=== PATIENT | male | born 1940 | race Caucasian/White ===

== ENCOUNTER 2017-01-23 07:19 | Day surgery (SDC) | payer MEDICARE ==
[~2017-01-23 07:19] MED LIST: Acetaminophen TAB* 325 MG PO PRN; Buffered Lidocaine 1% SYR 3ML* 3 ML/SYR SYRINGE INTRADERM ONE
[2017-01-23] MEDS ORDERED: Midazolam* 1 MG/ML 2 ML VIAL (2 MG) ONE (09:15)
[2017-01-23] MEDS ORDERED: Proparacaine 0.5% OPHTH.SOL* 15 ML BTL ONE (09:22)
[2017-01-23] MEDS ORDERED: Phenylephrine 2.5% OPTH.SOL* 2 ML BTL ONE (09:22)
[2017-01-23] MEDS ORDERED: Povidone Iodine 5% OPTH* 30 ML BTL ONE (09:22)
[2017-01-23] MEDS ORDERED: Lidocaine 1% MPF* 2 ML VIAL ONE (09:22)
[2017-01-23] MEDS ORDERED: Cyclopentolate 1% OPTH.SOL* 2 ML BTL ONE (09:22)
[2017-01-23] MEDS ORDERED: Flurbiprofen 0.03% OPTH.SOL* 2.5 ML BTL ONE (09:22)
[2017-01-23] MEDS ORDERED: Lidocaine 2% EPI 1:200000 MPF* 20 ML VIAL ONE (09:22)
[2017-01-23] MEDS ORDERED: acetaZOLAMIDE TAB* 250 MG ONE (09:22)
[2017-01-23] MEDS ORDERED: Neomycin/Polymy/Dex OPTH.SUSP* MAXITROL 0.1% 5 ML ONE (09:22)
[2017-01-23] MEDS ORDERED: fentaNYL* 50 MCG/ML 2 ML VIAL (100 MCG VIAL) ONE (09:47)
[2017-01-23 10:34] VITALS: BP 125/70
--- NOTE | 2017-01-24 02:41 | OP ---
DATE OF OPERATION: 01/23/17 - [facility] DATE OF : 44 SURGEON: Ulises Sellers MD PREOPERATIVE DIAGNOSIS: Cataract, left eye. POSTOPERATIVE DIAGNOSIS: Cataract, left eye. OPERATIVE PROCEDURE: Phacoemulsification, left eye with IOL. DESCRIPTION OF PROCEDURE: The patient was brought to the operating room after being given 1/2% Alcaine with epinephrine drops in the preoperative area. The eye was prepped and draped in the usual sterile fashion. Sterile drape and eyelid speculum were placed. Again, topical 1/2% Alcaine with epinephrine was given. A paracentesis incision was made at the 3 o'clock position with the No.75 blade. Clear cornea incision 2.2 x 2.2-mm was created at the 6 o'clock position starting at the anterior limbus using the 2.2-mm keratome. The anterior chamber was irrigated with 0.4 mL of 1% non-preservative intracameral lidocaine and filled with DisCoVisc. A capsulorrhexis was completed using the cystotome and the Utrata forceps. Hydrodissection was performed with balanced salt solution. The lens nucleus was removed with the Phacoemulsification handpiece without incident. Cortex was removed with the irrigation-aspiration handpiece. The capsular bag was re-inflated using DisCoVisc and an SN6AT3 21.5 implant was inserted with the shooter and oriented to the 97 degree meridian. Horizontal reference avery were made with the patient in a seated position in the preoperative area. The pupil was very small, so a Malyugin ring was used to dilate the pupil prior to capsulorrhexis and removed after insertion of the lens. The irrigation-aspiration handpiece was used to remove all residual DisCoVisc. The eye was refilled with balanced salt solution and the wound checked and found to be watertight. Topical Maxitrol drops were given. [facility] iris abnormalities requiring pupil dilation device [id number]/[facility] #: [id number]
== END 2017-01-23 10:27 | disposition home or self-care (01) ==
LOC: OREAST 07:19
PROVIDERS: ATTEND Specialist
DX: H25.812 Combined forms of age-related cataract, left eye (principal); H35.3131 Nonexudative age-related macular degeneration, bilateral, early dry stage; I10 Essential (primary) hypertension; J45.909 Unspecified asthma, uncomplicated
CPT/HCPCS: A9270-GY; J2250; J3010; V2787

== ENCOUNTER 2017-01-30 06:36 | Day surgery (SDC) | payer MEDICARE ==
[2017-01-30] MEDS ORDERED: Proparacaine 0.5% OPHTH.SOL* 15 ML BTL ONE (07:14)
[2017-01-30] MEDS ORDERED: Lidocaine 2% EPI 1:200000 MPF* 20 ML VIAL ONE (07:14)
[2017-01-30] MEDS ORDERED: acetaZOLAMIDE TAB* 250 MG ONE (07:14)
[2017-01-30] MEDS ORDERED: Flurbiprofen 0.03% OPTH.SOL* 2.5 ML BTL ONE (07:14)
[2017-01-30] MEDS ORDERED: Lidocaine 1% MPF* 2 ML VIAL ONE (07:14)
[2017-01-30] MEDS ORDERED: Neomycin/Polymy/Dex OPTH.SUSP* MAXITROL 0.1% 5 ML ONE (07:14)
[2017-01-30] MEDS ORDERED: Povidone Iodine 5% OPTH* 30 ML BTL ONE (07:14)
[2017-01-30] MEDS ORDERED: Cyclopentolate 1% OPTH.SOL* 2 ML BTL ONE (07:14)
[2017-01-30] MEDS ORDERED: Phenylephrine 2.5% OPTH.SOL* 2 ML BTL ONE (07:14)
[2017-01-30] MEDS ORDERED: Midazolam* 1 MG/ML 2 ML VIAL (2 MG) ONE (08:05)
[2017-01-30 08:53] VITALS: BP 125/58
--- NOTE | 2017-01-31 00:46 | OP ---
DATE OF OPERATION: 01/30/17 [facility] DATE OF : 44 SURGEON: Ulises Sellers M.D. PREOPERATIVE DIAGNOSIS: Cataract, right eye. POSTOPERATIVE DIAGNOSIS: Cataract, right eye. OPERATIVE PROCEDURE: Phacoemulsification, right eye with IOL. DESCRIPTION OF PROCEDURE: The patient was brought to the operating room after being given 1/2% Alcaine with epinephrine drops in the preoperative area. The eye was prepped and draped in the usual sterile fashion. Sterile drape and eyelid speculum were placed. Again, topical 1/2% Alcaine with epinephrine was given. A paracentesis incision was made at the 9 o'clock position with the No.75 blade. Clear cornea incision 2.2 x 2.2-mm was created at the 12 o'clock position starting at the anterior limbus using the 2.2-mm keratome. The anterior chamber was irrigated with 0.4 mL of 1% non-preservative intracameral lidocaine and filled with DisCoVisc. A capsulorrhexis was completed using the cystotome and the Utrata forceps. Hydrodissection was performed with balanced salt solution. The lens nucleus was removed with the Phacoemulsification handpiece without incident. Cortex was removed with the irrigation-aspiration handpiece. The capsular bag was re-inflated using DisCoVisc and an SN6AT4 20 implant was inserted with the shooter, oriented to the 61-degree [place]. Horizontal reference avery were made with the marking pen with the patient in a seated position in the preoperative area. The irrigation- aspiration handpiece was used to remove all residual DisCoVisc. The eye was refilled with balanced salt solution and the wound checked and found to be watertight. Topical Maxitrol drops were given. [id number]/[facility] #: [id number] [facility]
== END 2017-01-30 09:01 | disposition home or self-care (01) ==
LOC: OREAST 06:36
PROVIDERS: ATTEND Specialist
DX: H25.811 Combined forms of age-related cataract, right eye (principal); H35.3131 Nonexudative age-related macular degeneration, bilateral, early dry stage; I10 Essential (primary) hypertension; E78.5 Hyperlipidemia, unspecified; J45.909 Unspecified asthma, uncomplicated
CPT/HCPCS: A9270-GY; J2250; V2787

== ENCOUNTER 2022-11-13 23:04 | Inpatient (IN) ==
[2022-11-13] MEDS ORDERED: NS 0.9% 1000 ml BAG 1,000 ML IV ONE (23:34)
[2022-11-13] MEDS ORDERED: Ondansetron 4 mg VIAL 2 MG/ML 2 ml VIAL IV ONE (23:34)
[2022-11-13] MEDS ORDERED: NS 0.9% 1000 ml BAG 1,000 ML IV SCH (23:45)
[2022-11-14 00:06] LABS: ABS Lymphocytes 0.6 10^3/ul (1.0-4.8); ABS Monocytes 0.9 10^3/ul (0-0.8); ABS Neutrophils 8.9 10^3/ul (1.5-7.7); Eosinophil % 0.1 %; Hematocrit 40 % (42-52); Hemoglobin 13.1 g/dL (14.0-18.0); Lymphocyte % 6.1 %; Mean Corpuscular HGB Conc 33 g/dL (31-36); Mean Corpuscular Hemoglobin 26 pg (27-31); Mean Corpuscular Volume 78 fL (80-94); Mean Platelet Volume 7.2 fL (7.4-10.4); Nucleated Red Blood Cells % 0.1; Platelet Count 354 10^3/uL (150-450); Red Blood Count 5.08 10^6 /uL (4.18-5.48); Red Cell Distribution Width 15 % (10-15); White Blood Count 10.5 10^3/uL (3.5-10.8)
[2022-11-14 00:27] LABS: Albumin 4.4 g/dL (3.2-5.2); Albumin/Globulin Ratio 1.5 (1-3); C Reactive Protein 17.06 mg/L (<8.01); Calcium 10.3 mg/dL (8.6-10.3); Magnesium 1.9 mg/dL (1.9-2.7); Potassium 4.5 mmol/L (3.5-5.0); Total Bilirubin 0.5 mg/dL (0.2-1.0); Total Protein 7.4 g/dL (6.4-8.9); eGFR CKD-EPI 64.3 (>60)
[2022-11-14] MEDS ORDERED: Iohexol 350 (CONTRAST) 500 ML MDV IV ONE (00:54)
[2022-11-14] MEDS ORDERED: HYDROmorphone 0.5 MG/0.5 ML SYRINGE IV SLOW PU PRN (02:33)
[2022-11-14] MEDS ORDERED: Ondansetron 4 mg VIAL 2 MG/ML 2 ml VIAL IV PRN (04:40)
[2022-11-14] MEDS ORDERED: Albuterol HFA INHALER 8 gm MDI INH PRN (05:09)
[2022-11-14] MEDS ORDERED: Lorazepam PYXIS KEY PRN ×2 (05:13→21:14)
[2022-11-14] MEDS ORDERED: LORazepam 2 mg VIAL 1 ml IV PUSH ONE (05:14)
[2022-11-14] MEDS: NS 0.9% 1000 ml BAG 1,000 ML IV SCH ×3 (09:11→23:31)
[2022-11-14] MEDS ORDERED: fentaNYL 100 mcg/2 ml 50 MCG/ML VIAL ONE (14:59)
[2022-11-14] MEDS ORDERED: Midazolam 5 mg/5 ml VIAL 1 mg/ml 5 ml VIAL (5 mg) ONE (14:59)
[2022-11-14] MEDS: Mometasone 220 MCG MDI INH SCH (20:11)
[2022-11-14] MEDS ORDERED: Morphine 2 MG/ML SYRINGE IV PRN (21:12)
[2022-11-14] MEDS ORDERED: LORazepam 2 mg VIAL 1 ml IV PUSH PRN (21:14)
[2022-11-15 05:55] LABS: ABS Eosinophils 0.1 10^3/ul (0-0.6); ABS Lymphocytes 1.1 10^3/ul (1.0-4.8); ABS Monocytes 1.2 10^3/ul (0-0.8); ABS Neutrophils 7.4 10^3/ul (1.5-7.7); Eosinophil % 1.4 %; Hematocrit 31 % (42-52); Hemoglobin 10.2 g/dL (14.0-18.0); Lymphocyte % 10.7 %; Mean Corpuscular HGB Conc 33 g/dL (31-36); Mean Corpuscular Hemoglobin 26 pg (27-31); Mean Corpuscular Volume 79 fL (80-94); Mean Platelet Volume 6.9 fL (7.4-10.4); Platelet Count 261 10^3/uL (150-450); Red Blood Count 3.93 10^6 /uL (4.18-5.48); Red Cell Distribution Width 15 % (10-15); White Blood Count 9.9 10^3/uL (3.5-10.8)
[2022-11-15 06:45] LABS: Albumin 3.2 g/dL (3.2-5.2); Albumin/Globulin Ratio 1.6 (1-3); Calcium 8.1 mg/dL (8.6-10.3); Potassium 4.2 mmol/L (3.5-5.0); Total Bilirubin 0.4 mg/dL (0.2-1.0); Total Protein 5.2 g/dL (6.4-8.9); eGFR CKD-EPI 79.9 (>60)
[2022-11-15] MEDS: NS 0.9% 1000 ml BAG 1,000 ML IV SCH ×2 (09:23→19:55)
[2022-11-15] MEDS: Mometasone 220 MCG MDI INH SCH (21:37)
[2022-11-15] MEDS ORDERED: LORazepam 2 mg VIAL 1 ml IV PUSH ONE ×2 (23:55)
[2022-11-15] MEDS ORDERED: Lorazepam PYXIS KEY PRN (23:55)
[2022-11-16 08:38] VITALS: BP 138/70
== END 2022-11-16 10:00 | disposition short-term general hospital (02) | DRG 375 ==
LOC: EDHOLD 23:04 → ED 23:04 → SUATTDRO 11-14 03:06 → EDHOLD 11-14 12:30 → SSU 11-14 13:40
PROVIDERS: ADMIT Internal Medicine; ATTEND Internal Medicine

== ENCOUNTER 2023-01-21 07:21 | Inpatient (IN) ==
[2023-01-21] MEDS ORDERED: D5W 500 ml BAG 500 ML IV SCH (13:00)
[2023-01-21] MEDS ORDERED: Dextrose 50% Syringe 50 ml 25 GM/50 ML SYRINGE IV PUSH PRN (13:05)
[2023-01-21] MEDS: TPN CENTRAL STANDARD BASE B CENT\\PICC SCH (15:43)
[2023-01-21] MEDS: Heparin 5000 UNITS/ML 1 mL VIAL SUBCUT SCH ×2 (15:55→22:09)
[2023-01-21] MEDS: Pantoprazole VIAL 40 MG VIAL IV SCH (22:09)
[2023-01-22] MEDS: Heparin 5000 UNITS/ML 1 mL VIAL SUBCUT SCH ×3 (05:32→21:18)
[2023-01-22 06:44] LABS: ALT 81 U/L (7-52); AST 69 U/L (13-39); Alkaline Phosphatase 286 U/L (35-149); Anion Gap 5 mmol/L (2-11); Blood Urea Nitrogen 28 mg/dL (6-24); CO2 Carbon Dioxide 24 mmol/L (22-32); Calcium 7.1 mg/dL (8.6-10.3); Chloride 110 mmol/L (101-111); Cholesterol 93 mg/dL; Creatinine, Serum 0.66 mg/dL (0.67-1.17); Glucose 112 mg/dL (70-100); Magnesium 1.8 mg/dL (1.9-2.7); Phosphorus 3.5 mg/dL (2.5-5.0); Potassium 4.4 mmol/L (3.5-5.0); Prealbumin 7 mg/dL (18-38); Sodium 139 mmol/L (135-145); Total Protein 5.3 g/dL (6.4-8.9); Triglycerides 140 mg/dL; eGFR CKD-EPI 94.8 (>60)
[2023-01-22 06:57] LABS: Albumin < 1.7 g/dL (3.2-5.2); Albumin/Globulin Ratio 0.5 (1-3); Globulin 3.6 g/dL (2-4)
[2023-01-22] MEDS ORDERED: Pantoprazole VIAL 40 MG VIAL IV SCH (09:00)
[2023-01-22] MEDS: Insulin GLARGINE 100 un/ml 10 ml VIAL SUBCUT SCH (09:56)
[2023-01-22] MEDS: TPN CENTRAL STANDARD BASE B CENT\\PICC SCH (16:20)
[2023-01-22] MEDS: Pantoprazole VIAL 40 MG VIAL IV SCH (21:13)
[2023-01-23] MEDS: Heparin 5000 UNITS/ML 1 mL VIAL SUBCUT SCH ×3 (05:20→21:26)
[2023-01-23 05:30] LABS: ABS Eosinophils 0.1 10^3/ul (0-0.6); ABS Lymphocytes 1.5 10^3/ul (1.0-4.8); ABS Monocytes 0.9 10^3/ul (0-0.8); ABS Neutrophils 6.1 10^3/ul (1.5-7.7); Eosinophil % 1.3 %; Hematocrit 22 % (42-52); Hemoglobin 6.9 g/dL (14.0-18.0); Lymphocyte % 16.9 %; Mean Corpuscular HGB Conc 32 g/dL (31-36); Mean Corpuscular Hemoglobin 26 pg (27-31); Mean Corpuscular Volume 82 fL (80-94); Mean Platelet Volume 7.5 fL (7.4-10.4); Platelet Count 515 10^3/uL (150-450); Red Blood Count 2.67 10^6 /uL (4.18-5.48); Red Cell Distribution Width 21 % (10-15); White Blood Count 8.6 10^3/uL (3.5-10.8)
[2023-01-23 06:19] LABS: ALT 74 U/L (7-52); AST 59 U/L (13-39); Alkaline Phosphatase 259 U/L (35-149); Blood Urea Nitrogen 24 mg/dL (6-24); CO2 Carbon Dioxide 24 mmol/L (22-32); Calcium 7.3 mg/dL (8.6-10.3); Chloride 112 mmol/L (101-111); Creatinine, Serum 0.63 mg/dL (0.67-1.17); Glucose 122 mg/dL (70-100); Potassium 4.2 mmol/L (3.5-5.0); Sodium 136 mmol/L (135-145); Total Protein 5.3 g/dL (6.4-8.9); eGFR CKD-EPI 96.2 (>60)
[2023-01-23 06:20] LABS: Albumin < 1.7 g/dL (3.2-5.2); Albumin/Globulin Ratio 0.5 (1-3); Globulin 3.6 g/dL (2-4)
[2023-01-23] MEDS: Insulin GLARGINE 100 un/ml 10 ml VIAL SUBCUT SCH (09:24)
[2023-01-23] MEDS: TPN CENTRAL STANDARD BASE B CENT\\PICC SCH (16:41)
[2023-01-23] MEDS: Pantoprazole VIAL 40 MG VIAL IV SCH (21:21)
[2023-01-24] MEDS: Heparin 5000 UNITS/ML 1 mL VIAL SUBCUT SCH ×3 (05:26→23:38)
[2023-01-24 05:36] LABS: ABS Eosinophils 0.2 10^3/ul (0-0.6); ABS Lymphocytes 2.5 10^3/ul (1.0-4.8); ABS Neutrophils 6.7 10^3/ul (1.5-7.7); Eosinophil % 1.5 %; Hematocrit 23 % (42-52); Hemoglobin 7.1 g/dL (14.0-18.0); Lymphocyte % 24.3 %; Mean Corpuscular HGB Conc 31 g/dL (31-36); Mean Corpuscular Hemoglobin 26 pg (27-31); Mean Corpuscular Volume 82 fL (80-94); Mean Platelet Volume 7.4 fL (7.4-10.4); Nucleated Red Blood Cells % 0.1; Platelet Count 544 10^3/uL (150-450); Red Blood Count 2.76 10^6 /uL (4.18-5.48); Red Cell Distribution Width 21 % (10-15); White Blood Count 10.4 10^3/uL (3.5-10.8)
[2023-01-24 06:27] LABS: ALT 76 U/L (7-52); AST 63 U/L (13-39); Alkaline Phosphatase 266 U/L (35-149); Anion Gap 3 mmol/L (2-11); Blood Urea Nitrogen 24 mg/dL (6-24); CO2 Carbon Dioxide 22 mmol/L (22-32); Calcium 7.5 mg/dL (8.6-10.3); Chloride 111 mmol/L (101-111); Cholesterol 87 mg/dL; Creatinine, Serum 0.67 mg/dL (0.67-1.17); Glucose 123 mg/dL (70-100); Magnesium 1.7 mg/dL (1.9-2.7); Phosphorus 3.3 mg/dL (2.5-5.0); Potassium 4.4 mmol/L (3.5-5.0); Prealbumin 6 mg/dL (18-38); Sodium 136 mmol/L (135-145); Total Protein 5.4 g/dL (6.4-8.9); Triglycerides 141 mg/dL; eGFR CKD-EPI 94.4 (>60)
[2023-01-24 06:28] LABS: Albumin < 1.7 g/dL (3.2-5.2); Albumin/Globulin Ratio 0.5 (1-3); Globulin 3.7 g/dL (2-4)
[2023-01-24] MEDS: Insulin GLARGINE 100 un/ml 10 ml VIAL SUBCUT SCH (08:58)
[2023-01-24] MEDS: Albuterol HFA INHALER 8 gm MDI INH PRN ×2 (10:23→22:12)
[2023-01-24] MEDS ORDERED: TPN 24 HR with Sodium Chloride CONC. 4 MEQ/ML 100 MEQ, Potassium Chloride TPN 50 MEQ, C... CENT\\PICC SCH ×2 (10:40→17:01)
[2023-01-24] MEDS: Pantoprazole VIAL 40 MG VIAL IV SCH (22:11)
[2023-01-25] MEDS: Heparin 5000 UNITS/ML 1 mL VIAL SUBCUT SCH ×3 (05:25→21:55)
[2023-01-25 08:30] LABS: ABS Eosinophils 0.1 10^3/ul (0-0.6); ABS Lymphocytes 1.4 10^3/ul (1.0-4.8); ABS Monocytes 0.8 10^3/ul (0-0.8); ABS Neutrophils 6.2 10^3/ul (1.5-7.7); Eosinophil % 1.3 %; Hematocrit 21 % (42-52); Hemoglobin 6.7 g/dL (14.0-18.0); Lymphocyte % 16.4 %; Mean Corpuscular HGB Conc 33 g/dL (31-36); Mean Corpuscular Hemoglobin 27 pg (27-31); Mean Corpuscular Volume 81 fL (80-94); Nucleated Red Blood Cells % 0.1; Platelet Count 497 10^3/uL (150-450); Red Blood Count 2.54 10^6 /uL (4.18-5.48); Red Cell Distribution Width 20 % (10-15); White Blood Count 8.5 10^3/uL (3.5-10.8)
[2023-01-25 08:40] LABS: ALT 76 U/L (7-52); AST 63 U/L (13-39); Alkaline Phosphatase 248 U/L (35-149); Anion Gap 1 mmol/L (2-11); Blood Urea Nitrogen 25 mg/dL (6-24); CO2 Carbon Dioxide 22 mmol/L (22-32); Calcium 7.5 mg/dL (8.6-10.3); Chloride 111 mmol/L (101-111); Cholesterol 80 mg/dL; Glucose 130 mg/dL (70-100); Magnesium 1.9 mg/dL (1.9-2.7); Phosphorus 3.3 mg/dL (2.5-5.0); Potassium 4.3 mmol/L (3.5-5.0); Prealbumin 5 mg/dL (18-38); Sodium 134 mmol/L (135-145); Total Protein 5.1 g/dL (6.4-8.9); Triglycerides 117 mg/dL; eGFR CKD-EPI 93.1 (>60)
[2023-01-25 08:41] LABS: Albumin < 1.7 g/dL (3.2-5.2); Albumin/Globulin Ratio 0.5 (1-3); Globulin 3.4 g/dL (2-4)
[2023-01-25] MEDS: Insulin GLARGINE 100 un/ml 10 ml VIAL SUBCUT SCH (09:12)
[2023-01-25] MEDS: Albuterol HFA INHALER 8 gm MDI INH PRN (09:14)
[2023-01-25] MEDS: POTASSIUM CHLORIDE TPN CENT\\PICC SCH (17:19)
[2023-01-25] MEDS: SODIUM CHLORIDE CENT\\PICC SCH (17:19)
[2023-01-25] MEDS: TPN CENT\\PICC SCH (17:19)
[2023-01-25] MEDS: [UNRECOGNIZED DRUG - OTHER] CENT\\PICC SCH (17:19)
[2023-01-25] MEDS: Pantoprazole VIAL 40 MG VIAL IV SCH (21:55)
[2023-01-26] MEDS: Heparin 5000 UNITS/ML 1 mL VIAL SUBCUT SCH ×3 (05:44→21:11)
[2023-01-26 06:39] LABS: Calcium 7.5 mg/dL (8.6-10.3); Creatinine, Serum 0.63 mg/dL (0.67-1.17); Phosphorus 3.4 mg/dL (2.5-5.0); Potassium 4.4 mmol/L (3.5-5.0); eGFR CKD-EPI 96.2 (>60)
[2023-01-26] MEDS: Insulin GLARGINE 100 un/ml 10 ml VIAL SUBCUT SCH (07:40)
[2023-01-26] MEDS: Acetaminophen IV 1 GM/100ML 1,000 MG/100 ML BAG IV PRN ×2 (12:05→21:05)
[2023-01-26] MEDS: Oxymetazoline 0.05% NASAL SPR 15 ML BTL BOTH NARES SCH ×2 (12:11→20:46)
[2023-01-26] MEDS: Saline NASAL DROPS 0.65% BTL BOTH NARES PRN (15:55)
[2023-01-26] MEDS: Albuterol HFA INHALER 8 gm MDI INH PRN (16:00)
[2023-01-26] MEDS: [UNRECOGNIZED DRUG - OTHER] CENT\\PICC SCH (17:30)
[2023-01-26] MEDS: POTASSIUM CHLORIDE TPN CENT\\PICC SCH (17:30)
[2023-01-26] MEDS: TPN CENT\\PICC SCH (17:30)
[2023-01-26] MEDS: SODIUM CHLORIDE CENT\\PICC SCH (17:30)
[2023-01-26] MEDS ORDERED: diazePAM INJ CARPUJECT 5 MG/ML SYRINGE IV ONE ×2 (19:00→20:00)
[2023-01-26] MEDS: Pantoprazole VIAL 40 MG VIAL IV SCH (20:46)
[2023-01-27] MEDS: Heparin 5000 UNITS/ML 1 mL VIAL SUBCUT SCH ×3 (05:47→21:12)
[2023-01-27] MEDS: Acetaminophen IV 1 GM/100ML 1,000 MG/100 ML BAG IV PRN ×2 (05:52→19:17)
[2023-01-27 06:31] LABS: ABS Eosinophils 0.2 10^3/ul (0-0.6); ABS Lymphocytes 1.3 10^3/ul (1.0-4.8); ABS Monocytes 0.8 10^3/ul (0-0.8); ABS Neutrophils 6.2 10^3/ul (1.5-7.7); Eosinophil % 1.9 %; Hematocrit 25 % (42-52); Hemoglobin 7.9 g/dL (14.0-18.0); Lymphocyte % 15.4 %; Mean Corpuscular HGB Conc 32 g/dL (31-36); Mean Corpuscular Hemoglobin 26 pg (27-31); Mean Corpuscular Volume 81 fL (80-94); Mean Platelet Volume 7.5 fL (7.4-10.4); Nucleated Red Blood Cells % 0.1; Platelet Count 499 10^3/uL (150-450); Red Blood Count 3.04 10^6 /uL (4.18-5.48); Red Cell Distribution Width 20 % (10-15); White Blood Count 8.5 10^3/uL (3.5-10.8)
[2023-01-27] MEDS: Insulin GLARGINE 100 un/ml 10 ml VIAL SUBCUT SCH (08:14)
[2023-01-27] MEDS: Oxymetazoline 0.05% NASAL SPR 15 ML BTL BOTH NARES SCH ×2 (08:15→21:06)
[2023-01-27] MEDS: Albuterol HFA INHALER 8 gm MDI INH PRN (08:32)
[2023-01-27] MEDS ORDERED: Morphine 2 MG/ML SYRINGE IV ONE (11:00)
[2023-01-27] MEDS ORDERED: Alteplase (CATHFLO) 2 MG VIAL IV ONE (16:51)
[2023-01-27] MEDS: TPN CENT\\PICC SCH (17:56)
[2023-01-27] MEDS: POTASSIUM CHLORIDE TPN CENT\\PICC SCH (17:56)
[2023-01-27] MEDS: SODIUM CHLORIDE CENT\\PICC SCH (17:56)
[2023-01-27] MEDS: [UNRECOGNIZED DRUG - OTHER] CENT\\PICC SCH (17:56)
[2023-01-27] MEDS: guaiFENesin 100 mg/5 ml LIQ unit dose cup PO PRN (20:42)
[2023-01-27] MEDS: Pantoprazole VIAL 40 MG VIAL IV SCH (21:06)
[2023-01-28] MEDS: Heparin 5000 UNITS/ML 1 mL VIAL SUBCUT SCH ×3 (05:40→22:44)
[2023-01-28] MEDS: Acetaminophen IV 1 GM/100ML 1,000 MG/100 ML BAG IV PRN (05:40)
[2023-01-28 06:21] LABS: ABS Eosinophils 0.2 10^3/ul (0-0.6); ABS Lymphocytes 1.3 10^3/ul (1.0-4.8); ABS Monocytes 0.8 10^3/ul (0-0.8); ABS Neutrophils 7.6 10^3/ul (1.5-7.7); Eosinophil % 1.5 %; Hematocrit 26 % (42-52); Hemoglobin 8.2 g/dL (14.0-18.0); Lymphocyte % 13.4 %; Mean Corpuscular HGB Conc 32 g/dL (31-36); Mean Corpuscular Hemoglobin 26 pg (27-31); Mean Corpuscular Volume 82 fL (80-94); Mean Platelet Volume 7.5 fL (7.4-10.4); Platelet Count 529 10^3/uL (150-450); Red Blood Count 3.14 10^6 /uL (4.18-5.48); Red Cell Distribution Width 20 % (10-15)
[2023-01-28] MEDS: Insulin GLARGINE 100 un/ml 10 ml VIAL SUBCUT SCH (09:03)
[2023-01-28] MEDS: Oxymetazoline 0.05% NASAL SPR 15 ML BTL BOTH NARES SCH ×2 (09:04→21:13)
[2023-01-28] MEDS: Albuterol HFA INHALER 8 gm MDI INH PRN (09:05)
[2023-01-28] MEDS: SODIUM CHLORIDE CENT\\PICC SCH (18:23)
[2023-01-28] MEDS: TPN CENT\\PICC SCH (18:23)
[2023-01-28] MEDS: [UNRECOGNIZED DRUG - OTHER] CENT\\PICC SCH (18:23)
[2023-01-28] MEDS: POTASSIUM CHLORIDE TPN CENT\\PICC SCH (18:23)
[2023-01-28] MEDS: Pantoprazole VIAL 40 MG VIAL IV SCH (21:13)
[2023-01-28] MEDS: guaiFENesin 100 mg/5 ml LIQ unit dose cup PO PRN (21:13)
[2023-01-29] MEDS: Albuterol HFA INHALER 8 gm MDI INH PRN ×2 (00:14→23:20)
[2023-01-29] MEDS: Heparin 5000 UNITS/ML 1 mL VIAL SUBCUT SCH ×3 (06:14→21:42)
[2023-01-29 07:19] LABS: ALT 54 U/L (7-52); AST 38 U/L (13-39); Alkaline Phosphatase 244 U/L (35-149); Anion Gap 3 mmol/L (2-11); Blood Urea Nitrogen 27 mg/dL (6-24); CO2 Carbon Dioxide 24 mmol/L (22-32); Calcium 7.6 mg/dL (8.6-10.3); Chloride 108 mmol/L (101-111); Cholesterol 81 mg/dL; Creatinine, Serum 0.65 mg/dL (0.67-1.17); Glucose 109 mg/dL (70-100); Magnesium 1.9 mg/dL (1.9-2.7); Phosphorus 3.7 mg/dL (2.5-5.0); Potassium 4.8 mmol/L (3.5-5.0); Prealbumin 5 mg/dL (18-38); Sodium 135 mmol/L (135-145); Total Protein 5.5 g/dL (6.4-8.9); Triglycerides 143 mg/dL; eGFR CKD-EPI 95.3 (>60)
[2023-01-29 07:21] LABS: Albumin < 1.7 g/dL (3.2-5.2); Albumin/Globulin Ratio 0.4 (1-3); Globulin 3.8 g/dL (2-4)
[2023-01-29] MEDS: Oxymetazoline 0.05% NASAL SPR 15 ML BTL BOTH NARES SCH ×2 (09:06→22:01)
[2023-01-29] MEDS: Insulin GLARGINE 100 un/ml 10 ml VIAL SUBCUT SCH (09:12)
[2023-01-29] MEDS ORDERED: Iohexol 300 (CONTRAST) 10 ML SDV IV ONE (15:18)
[2023-01-29] MEDS: SODIUM CHLORIDE CENT\\PICC SCH (19:22)
[2023-01-29] MEDS: TPN CENT\\PICC SCH (19:22)
[2023-01-29] MEDS: [UNRECOGNIZED DRUG - OTHER] CENT\\PICC SCH (19:22)
[2023-01-29] MEDS: POTASSIUM CHLORIDE TPN CENT\\PICC SCH (19:22)
[2023-01-29] MEDS: Pantoprazole VIAL 40 MG VIAL IV SCH (21:42)
[2023-01-29] MEDS: guaiFENesin 100 mg/5 ml LIQ unit dose cup PO PRN (21:43)
[2023-01-29 22:26] LABS: Urine Appearance Clear; Urine Bilirubin Negative (Negative); Urine Blood Negative (Negative); Urine Color Yellow; Urine Glucose Negative (Negative); Urine Ketones Negative (Negative); Urine Nitrite Negative (Negative); Urine Protein Negative (Negative); Urine Urobilinogen Negative (Negative)
[2023-01-30] MEDS: Heparin 5000 UNITS/ML 1 mL VIAL SUBCUT SCH ×3 (06:20→22:19)
[2023-01-30 07:01] LABS: ABS Eosinophils 0.2 10^3/ul (0-0.6); ABS Monocytes 0.8 10^3/ul (0-0.8); ABS Neutrophils 5.9 10^3/ul (1.5-7.7); Eosinophil % 1.9 %; Hematocrit 24 % (42-52); Lymphocyte % 22.4 %; Mean Corpuscular HGB Conc 34 g/dL (31-36); Mean Corpuscular Hemoglobin 27 pg (27-31); Mean Corpuscular Volume 81 fL (80-94); Mean Platelet Volume 7.7 fL (7.4-10.4); Platelet Count 518 10^3/uL (150-450); Red Blood Count 2.92 10^6 /uL (4.18-5.48); Red Cell Distribution Width 20 % (10-15)
[2023-01-30 08:08] LABS: ALT 60 U/L (7-52); AST 53 U/L (13-39); Alkaline Phosphatase 268 U/L (35-149); Anion Gap 6 mmol/L (2-11); Blood Urea Nitrogen 24 mg/dL (6-24); CO2 Carbon Dioxide 24 mmol/L (22-32); Calcium 7.6 mg/dL (8.6-10.3); Chloride 105 mmol/L (101-111); Creatinine, Serum 0.62 mg/dL (0.67-1.17); Glucose 82 mg/dL (70-100); Potassium 4.7 mmol/L (3.5-5.0); Sodium 135 mmol/L (135-145); Total Protein 5.6 g/dL (6.4-8.9); eGFR CKD-EPI 96.6 (>60)
[2023-01-30 08:11] LABS: Albumin < 1.7 g/dL (3.2-5.2); Albumin/Globulin Ratio 0.4 (1-3); Globulin 3.9 g/dL (2-4)
[2023-01-30] MEDS: Insulin GLARGINE 100 un/ml 10 ml VIAL SUBCUT SCH (08:38)
[2023-01-30] MEDS: Albuterol HFA INHALER 8 gm MDI INH PRN ×2 (08:39→23:58)
[2023-01-30] MEDS: Oxymetazoline 0.05% NASAL SPR 15 ML BTL BOTH NARES SCH ×2 (08:39→22:19)
[2023-01-30] MEDS: TPN CENT\\PICC SCH (20:24)
[2023-01-30] MEDS: POTASSIUM CHLORIDE TPN CENT\\PICC SCH (20:24)
[2023-01-30] MEDS: [UNRECOGNIZED DRUG - OTHER] CENT\\PICC SCH (20:24)
[2023-01-30] MEDS: SODIUM CHLORIDE CENT\\PICC SCH (20:24)
[2023-01-30] MEDS: Pantoprazole VIAL 40 MG VIAL IV SCH (22:20)
[2023-01-31] MEDS: Heparin 5000 UNITS/ML 1 mL VIAL SUBCUT SCH ×3 (05:47→21:55)
[2023-01-31] MEDS: Oxymetazoline 0.05% NASAL SPR 15 ML BTL BOTH NARES SCH ×2 (09:29→21:58)
[2023-01-31] MEDS: Insulin GLARGINE 100 un/ml 10 ml VIAL SUBCUT SCH (09:29)
[2023-01-31] MEDS: Albuterol HFA INHALER 8 gm MDI INH PRN ×2 (09:31→20:17)
[2023-01-31] MEDS: POTASSIUM CHLORIDE TPN CENT\\PICC SCH (15:55)
[2023-01-31] MEDS: [UNRECOGNIZED DRUG - OTHER] CENT\\PICC SCH (15:55)
[2023-01-31] MEDS: guaiFENesin 100 mg/5 ml LIQ unit dose cup PO PRN (15:55)
[2023-01-31] MEDS: TPN CENT\\PICC SCH (15:55)
[2023-01-31] MEDS: SODIUM CHLORIDE CENT\\PICC SCH (15:55)
[2023-01-31] MEDS: Pantoprazole VIAL 40 MG VIAL IV SCH (21:55)
[2023-02-01] MEDS: Heparin 5000 UNITS/ML 1 mL VIAL SUBCUT SCH ×3 (05:38→21:41)
[2023-02-01] MEDS: guaiFENesin 100 mg/5 ml LIQ unit dose cup PO PRN (05:57)
[2023-02-01 06:26] LABS: ALT 60 U/L (7-52); AST 60 U/L (13-39); Alkaline Phosphatase 261 U/L (35-149); Anion Gap 2 mmol/L (2-11); Blood Urea Nitrogen 24 mg/dL (6-24); CO2 Carbon Dioxide 25 mmol/L (22-32); Calcium 7.4 mg/dL (8.6-10.3); Chloride 105 mmol/L (101-111); Cholesterol 83 mg/dL; Creatinine, Serum 0.65 mg/dL (0.67-1.17); Glucose 104 mg/dL (70-100); Magnesium 1.8 mg/dL (1.9-2.7); Phosphorus 3.7 mg/dL (2.5-5.0); Potassium 4.5 mmol/L (3.5-5.0); Prealbumin 7 mg/dL (18-38); Sodium 132 mmol/L (135-145); Total Protein 5.4 g/dL (6.4-8.9); Triglycerides 104 mg/dL; eGFR CKD-EPI 95.3 (>60)
[2023-02-01 06:27] LABS: Albumin < 1.7 g/dL (3.2-5.2); Albumin/Globulin Ratio 0.5 (1-3); Globulin 3.7 g/dL (2-4)
[2023-02-01] MEDS: Insulin GLARGINE 100 un/ml 10 ml VIAL SUBCUT SCH (10:44)
[2023-02-01] MEDS: Oxymetazoline 0.05% NASAL SPR 15 ML BTL BOTH NARES SCH ×2 (10:46→20:47)
[2023-02-01] MEDS: Albuterol HFA INHALER 8 gm MDI INH PRN ×2 (10:46→23:54)
[2023-02-01] MEDS: SODIUM CHLORIDE CENT\\PICC SCH (17:36)
[2023-02-01] MEDS: TPN CENT\\PICC SCH (17:36)
[2023-02-01] MEDS: [UNRECOGNIZED DRUG - OTHER] CENT\\PICC SCH (17:36)
[2023-02-01] MEDS: POTASSIUM CHLORIDE TPN CENT\\PICC SCH (17:36)
[2023-02-01] MEDS: guaiFENesin/CODIENE 100mg/10mg 5 ML UDC PO SCH (20:47)
[2023-02-01] MEDS: Pantoprazole VIAL 40 MG VIAL IV SCH (20:47)
[2023-02-02] MEDS: Saline NASAL DROPS 0.65% BTL BOTH NARES PRN (05:32)
[2023-02-02] MEDS: Heparin 5000 UNITS/ML 1 mL VIAL SUBCUT SCH ×3 (05:35→21:51)
[2023-02-02] MEDS: Oxymetazoline 0.05% NASAL SPR 15 ML BTL BOTH NARES SCH ×2 (08:46→20:49)
[2023-02-02] MEDS: Insulin GLARGINE 100 un/ml 10 ml VIAL SUBCUT SCH (08:47)
[2023-02-02] MEDS: [UNRECOGNIZED DRUG - OTHER] CENT\\PICC SCH (17:32)
[2023-02-02] MEDS: SODIUM CHLORIDE CENT\\PICC SCH (17:32)
[2023-02-02] MEDS: POTASSIUM CHLORIDE TPN CENT\\PICC SCH (17:32)
[2023-02-02] MEDS: TPN CENT\\PICC SCH (17:32)
[2023-02-02] MEDS: guaiFENesin/CODIENE 100mg/10mg 5 ML UDC PO SCH (20:48)
[2023-02-02] MEDS: Pantoprazole VIAL 40 MG VIAL IV SCH (20:49)
[2023-02-02] MEDS: Albuterol HFA INHALER 8 gm MDI INH PRN (20:50)
[2023-02-03] MEDS: guaiFENesin/CODIENE 100mg/10mg 5 ML UDC PO PRN (00:21)
[2023-02-03 01:06] LABS: ABS Eosinophils 0.2 10^3/ul (0-0.6); ABS Lymphocytes 1.7 10^3/ul (1.0-4.8); ABS Monocytes 0.8 10^3/ul (0-0.8); Eosinophil % 1.8 %; Hematocrit 22 % (42-52); Hemoglobin 7.2 g/dL (14.0-18.0); Lymphocyte % 19.6 %; Mean Corpuscular HGB Conc 32 g/dL (31-36); Mean Corpuscular Hemoglobin 26 pg (27-31); Mean Corpuscular Volume 81 fL (80-94); Mean Platelet Volume 7.8 fL (7.4-10.4); Platelet Count 493 10^3/uL (150-450); Red Blood Count 2.74 10^6 /uL (4.18-5.48); Red Cell Distribution Width 20 % (10-15); White Blood Count 8.7 10^3/uL (3.5-10.8)
[2023-02-03] MEDS: Acetaminophen IV 1 GM/100ML 1,000 MG/100 ML BAG IV PRN ×2 (01:33→11:47)
[2023-02-03 01:49] LABS: ALT 59 U/L (7-52); AST 47 U/L (13-39); Alkaline Phosphatase 257 U/L (35-149); Anion Gap 1 mmol/L (2-11); Blood Urea Nitrogen 21 mg/dL (6-24); CO2 Carbon Dioxide 27 mmol/L (22-32); Calcium 7.4 mg/dL (8.6-10.3); Chloride 104 mmol/L (101-111); Creatinine, Serum 0.64 mg/dL (0.67-1.17); Glucose 115 mg/dL (70-100); Potassium 4.4 mmol/L (3.5-5.0); Sodium 132 mmol/L (135-145); Total Protein 5.5 g/dL (6.4-8.9); eGFR CKD-EPI 95.7 (>60)
[2023-02-03 01:51] LABS: Albumin < 1.7 g/dL (3.2-5.2); Albumin/Globulin Ratio 0.4 (1-3); Globulin 3.8 g/dL (2-4)
[2023-02-03] MEDS ORDERED: Iohexol 300 (CONTRAST) 10 ML SDV IV ONE (01:53)
[2023-02-03] MEDS: Heparin 5000 UNITS/ML 1 mL VIAL SUBCUT SCH ×3 (06:35→20:47)
[2023-02-03 08:07] LABS: % Iron Saturation 16 % (15-55); .Transferrin 88 mg/dL (203-362); Iron < 20 ug/dL (50-212); Total Iron Binding Capacity 123 mcg/dL (250-450); Unsaturated Iron Binding 103 ug/dL
[2023-02-03 08:28] LABS: Ferritin 539.3 ng/mL (24-336)
[2023-02-03 08:32] LABS: Folate 12.86 ng/mL (5.90-24.80)
[2023-02-03 08:33] LABS: Vitamin B12 636 pg/mL (180-914)
[2023-02-03] MEDS: Oxymetazoline 0.05% NASAL SPR 15 ML BTL BOTH NARES SCH ×2 (08:46→20:46)
[2023-02-03] MEDS: Insulin GLARGINE 100 un/ml 10 ml VIAL SUBCUT SCH (08:47)
[2023-02-03] MEDS ORDERED: Iohexol 350 (CONTRAST) 500 ML MDV IV ONE (09:09)
[2023-02-03] MEDS: Lidocaine PATCH 5% PATCH TRANSDERM SCH (13:03)
[2023-02-03] MEDS: TPN CENT\\PICC SCH (17:27)
[2023-02-03] MEDS: [UNRECOGNIZED DRUG - OTHER] CENT\\PICC SCH (17:27)
[2023-02-03] MEDS: POTASSIUM CHLORIDE TPN CENT\\PICC SCH (17:27)
[2023-02-03] MEDS: SODIUM CHLORIDE CENT\\PICC SCH (17:27)
[2023-02-03] MEDS: guaiFENesin/CODIENE 100mg/10mg 5 ML UDC PO SCH (20:45)
[2023-02-03] MEDS: Pantoprazole VIAL 40 MG VIAL IV SCH (20:46)
[2023-02-03] MEDS: Albuterol HFA INHALER 8 gm MDI INH PRN (21:29)
[2023-02-04] MEDS: guaiFENesin/CODIENE 100mg/10mg 5 ML UDC PO PRN ×2 (00:48→21:12)
[2023-02-04] MEDS: Heparin 5000 UNITS/ML 1 mL VIAL SUBCUT SCH ×3 (04:32→21:13)
[2023-02-04] MEDS: Albuterol HFA INHALER 8 gm MDI INH PRN ×2 (04:40→10:32)
[2023-02-04 04:57] LABS: ABS Eosinophils 0.1 10^3/ul (0-0.6); ABS Lymphocytes 1.9 10^3/ul (1.0-4.8); ABS Monocytes 0.8 10^3/ul (0-0.8); ABS Neutrophils 6.6 10^3/ul (1.5-7.7); Eosinophil % 1.5 %; Hematocrit 22 % (42-52); Lymphocyte % 19.9 %; Mean Corpuscular HGB Conc 32 g/dL (31-36); Mean Corpuscular Hemoglobin 25 pg (27-31); Mean Corpuscular Volume 80 fL (80-94); Platelet Count 532 10^3/uL (150-450); Red Blood Count 2.78 10^6 /uL (4.18-5.48); Red Cell Distribution Width 20 % (10-15); White Blood Count 9.5 10^3/uL (3.5-10.8)
[2023-02-04 05:16] LABS: Magnesium 1.9 mg/dL (1.9-2.7)
[2023-02-04] MEDS: Lidocaine PATCH 5% PATCH TRANSDERM SCH (09:04)
[2023-02-04] MEDS: Oxymetazoline 0.05% NASAL SPR 15 ML BTL BOTH NARES SCH ×2 (09:05→21:12)
[2023-02-04] MEDS: Insulin GLARGINE 100 un/ml 10 ml VIAL SUBCUT SCH (10:29)
[2023-02-04 11:52] LABS: Calcium 7.3 mg/dL (8.6-10.3); Creatinine, Serum 0.67 mg/dL (0.67-1.17); Potassium 4.5 mmol/L (3.5-5.0); eGFR CKD-EPI 94.4 (>60)
[2023-02-04] MEDS: SODIUM CHLORIDE CENT\\PICC SCH (17:35)
[2023-02-04] MEDS: [UNRECOGNIZED DRUG - OTHER] CENT\\PICC SCH (17:35)
[2023-02-04] MEDS: POTASSIUM CHLORIDE TPN CENT\\PICC SCH (17:35)
[2023-02-04] MEDS: TPN CENT\\PICC SCH (17:35)
[2023-02-04] MEDS: Pantoprazole VIAL 40 MG VIAL IV SCH (21:12)
[2023-02-05] MEDS: diazePAM INJ CARPUJECT 5 MG/ML SYRINGE IV PRN ×2 (02:27→22:15)
[2023-02-05] MEDS: Heparin 5000 UNITS/ML 1 mL VIAL SUBCUT SCH ×3 (05:30→22:14)
[2023-02-05 06:16] LABS: ALT 39 U/L (7-52); AST 28 U/L (13-39); Alkaline Phosphatase 230 U/L (35-149); Blood Urea Nitrogen 19 mg/dL (6-24); CO2 Carbon Dioxide 28 mmol/L (22-32); Calcium 7.4 mg/dL (8.6-10.3); Chloride 104 mmol/L (101-111); Cholesterol 83 mg/dL; Glucose 118 mg/dL (70-100); Magnesium 1.8 mg/dL (1.9-2.7); Phosphorus 3.5 mg/dL (2.5-5.0); Potassium 4.5 mmol/L (3.5-5.0); Prealbumin 7 mg/dL (18-38); Sodium 132 mmol/L (135-145); Total Protein 5.5 g/dL (6.4-8.9); Triglycerides 123 mg/dL; eGFR CKD-EPI 97.6 (>60)
[2023-02-05 06:20] LABS: Albumin < 1.7 g/dL (3.2-5.2); Albumin/Globulin Ratio 0.4 (1-3); Globulin 3.8 g/dL (2-4)
[2023-02-05] MEDS: Oxymetazoline 0.05% NASAL SPR 15 ML BTL BOTH NARES SCH ×2 (08:46→22:14)
[2023-02-05] MEDS: Albuterol HFA INHALER 8 gm MDI INH PRN (08:47)
[2023-02-05] MEDS: Insulin GLARGINE 100 un/ml 10 ml VIAL SUBCUT SCH (09:03)
[2023-02-05] MEDS: Lidocaine PATCH 5% PATCH TRANSDERM SCH (10:55)
[2023-02-05] MEDS: [UNRECOGNIZED DRUG - OTHER] CENT\\PICC SCH (17:48)
[2023-02-05] MEDS: POTASSIUM CHLORIDE TPN CENT\\PICC SCH (17:48)
[2023-02-05] MEDS: SODIUM CHLORIDE CENT\\PICC SCH (17:48)
[2023-02-05] MEDS: TPN CENT\\PICC SCH (17:48)
[2023-02-05] MEDS: guaiFENesin/CODIENE 100mg/10mg 5 ML UDC PO PRN (22:14)
[2023-02-05] MEDS: Pantoprazole VIAL 40 MG VIAL IV SCH (22:14)
[2023-02-06] MEDS: Heparin 5000 UNITS/ML 1 mL VIAL SUBCUT SCH ×2 (05:29→14:21)
[2023-02-06 05:46] LABS: ABS Eosinophils 0.1 10^3/ul (0-0.6); ABS Lymphocytes 1.4 10^3/ul (1.0-4.8); ABS Monocytes 0.9 10^3/ul (0-0.8); ABS Neutrophils 7.7 10^3/ul (1.5-7.7); Eosinophil % 1.4 %; Hematocrit 21 % (42-52); Hemoglobin 6.9 g/dL (14.0-18.0); Lymphocyte % 13.9 %; Mean Corpuscular HGB Conc 33 g/dL (31-36); Mean Corpuscular Hemoglobin 26 pg (27-31); Mean Corpuscular Volume 80 fL (80-94); Platelet Count 520 10^3/uL (150-450); Red Blood Count 2.62 10^6 /uL (4.18-5.48); Red Cell Distribution Width 20 % (10-15); White Blood Count 10.2 10^3/uL (3.5-10.8)
[2023-02-06 06:22] LABS: ALT 37 U/L (7-52); AST 32 U/L (13-39); Alkaline Phosphatase 251 U/L (35-149); Anion Gap 2 mmol/L (2-11); Blood Urea Nitrogen 20 mg/dL (6-24); CO2 Carbon Dioxide 26 mmol/L (22-32); Calcium 7.4 mg/dL (8.6-10.3); Chloride 104 mmol/L (101-111); Glucose 108 mg/dL (70-100); Potassium 4.5 mmol/L (3.5-5.0); Sodium 132 mmol/L (135-145); Total Protein 5.4 g/dL (6.4-8.9); eGFR CKD-EPI 97.6 (>60)
[2023-02-06 06:33] LABS: Albumin < 1.7 g/dL (3.2-5.2); Albumin/Globulin Ratio 0.5 (1-3); Globulin 3.7 g/dL (2-4)
[2023-02-06] MEDS: Oxymetazoline 0.05% NASAL SPR 15 ML BTL BOTH NARES SCH ×2 (09:03→09:08)
[2023-02-06] MEDS: Insulin GLARGINE 100 un/ml 10 ml VIAL SUBCUT SCH (09:04)
[2023-02-06] MEDS: Lidocaine PATCH 5% PATCH TRANSDERM SCH (09:04)
[2023-02-06] MEDS: Albuterol HFA INHALER 8 gm MDI INH PRN (16:45)
[2023-02-06] MEDS ORDERED: Furosemide 40 mg/4 ml IV VIAL IV ONE (16:59)
[2023-02-06] MEDS ORDERED: Furosemide 40 mg/4 ml IV VIAL ONE (17:06)
[2023-02-06 17:15] VITALS: BP 149/74
[2023-02-06] MEDS ORDERED: Acetylcysteine INH SOL (RT) 200 MG/ML 4 ML VIAL INH SCH (18:00)
== END 2023-02-06 17:18 | disposition short-term general hospital (02) | DRG 374 ==
LOC: PMRU 11:38
PROVIDERS: ADMIT Physical Medicine & Rehabilitation; ATTEND Physical Medicine & Rehabilitation

== ENCOUNTER 2023-02-06 17:05 | Inpatient (IN) ==
[2023-02-06 17:47] LABS: ABS Eosinophils 0.1 10^3/ul (0-0.6); ABS Lymphocytes 2.7 10^3/ul (1.0-4.8); ABS Neutrophils 9.9 10^3/ul (1.5-7.7); Eosinophil % 0.5 %; Hematocrit 23 % (42-52); Hemoglobin 7.4 g/dL (14.0-18.0); Mean Corpuscular HGB Conc 33 g/dL (31-36); Mean Corpuscular Hemoglobin 26 pg (27-31); Mean Corpuscular Volume 81 fL (80-94); Nucleated Red Blood Cells % 0.1; Platelet Count 546 10^3/uL (150-450); Red Blood Count 2.79 10^6 /uL (4.18-5.48); Red Cell Distribution Width 20 % (10-15); White Blood Count 13.7 10^3/uL (3.5-10.8)
[2023-02-06 18:05] LABS: ALT 43 U/L (7-52); AST 38 U/L (13-39); Alkaline Phosphatase 277 U/L (35-149); Anion Gap 2 mmol/L (2-11); Blood Urea Nitrogen 21 mg/dL (6-24); CO2 Carbon Dioxide 27 mmol/L (22-32); Calcium 7.7 mg/dL (8.6-10.3); Chloride 102 mmol/L (101-111); Creatinine, Serum 0.61 mg/dL (0.67-1.17); Glucose 130 mg/dL (70-100); Potassium 4.6 mmol/L (3.5-5.0); Sodium 131 mmol/L (135-145); Total Protein 6.1 g/dL (6.4-8.9); eGFR CKD-EPI 97.1 (>60)
[2023-02-06 18:14] LABS: Albumin < 1.7 g/dL (3.2-5.2); Albumin/Globulin Ratio 0.4 (1-3); Globulin 4.4 g/dL (2-4)
[2023-02-06 18:18] LABS: PCO2 Arterial 39 mmHg (35-45); PO2 Arterial 64 mmHg (80-100)
[2023-02-06] MEDS ORDERED: Piperacillin/Tazobac ADVAN 3.375 GM in NS 0.9% 100 ml BAG 100 ML IV ONE (18:47)
[2023-02-06] MEDS ORDERED: Dextrose 50% Syringe 50 ml 25 GM/50 ML SYRINGE IV PUSH PRN (18:58)
[2023-02-06] MEDS ORDERED: Albuterol HFA INHALER 8 gm MDI INH PRN (18:59)
[2023-02-06] MEDS ORDERED: Saline NASAL DROPS 0.65% BTL BOTH NARES PRN (18:59)
[2023-02-06] MEDS ORDERED: TPN CENT\\PICC SCH (19:00)
[2023-02-06] MEDS ORDERED: POTASSIUM CHLORIDE TPN CENT\\PICC SCH (19:00)
[2023-02-06] MEDS ORDERED: guaiFENesin/CODIENE 100mg/10mg 5 ML UDC PO PRN (19:00)
[2023-02-06] MEDS ORDERED: Albuterol/Ipratropium NEB.SOL (2.5/0.5 MG) 3 ML NEB.SOLN INH SCH (19:00)
[2023-02-06] MEDS ORDERED: SODIUM CHLORIDE CENT\\PICC SCH (19:00)
[2023-02-06] MEDS ORDERED: [UNRECOGNIZED DRUG - OTHER] CENT\\PICC SCH (19:00)
[2023-02-06] MEDS ORDERED: Iohexol 350 (CONTRAST) 500 ML MDV IV ONE (19:09)
[2023-02-06 19:49] LABS: % Iron Saturation 14 % (15-55); .Transferrin 100 mg/dL (203-362); Iron < 20 ug/dL (50-212); Total Iron Binding Capacity 140 mcg/dL (250-450); Unsaturated Iron Binding 120 ug/dL
[2023-02-06] MEDS: Acetylcysteine INH SOL (RT) 200 MG/ML 4 ML VIAL INH SCH (19:55)
[2023-02-06] MEDS: Pantoprazole VIAL 40 MG VIAL IV SCH (20:18)
[2023-02-06] MEDS ORDERED: Oxymetazoline 0.05% NASAL SPR 15 ML BTL BOTH NARES SCH (21:00)
[2023-02-06 21:36] LABS: Phosphorus 3.6 mg/dL (2.5-5.0)
[2023-02-06 23:50] LABS: High Sensitivity Troponin 1 Hr 12 pg/mL (<20)
[2023-02-06] MEDS: Heparin 5000 UNITS/ML 1 mL VIAL SUBCUT SCH (23:56)
[2023-02-07] MEDS: Albuterol/Ipratropium NEB.SOL (2.5/0.5 MG) 3 ML NEB.SOLN INH SCH ×4 (01:17→19:34)
[2023-02-07] MEDS: Heparin 5000 UNITS/ML 1 mL VIAL SUBCUT SCH ×3 (05:57→21:30)
[2023-02-07 06:08] LABS: ALT 38 U/L (7-52); AST 33 U/L (13-39); Albumin < 1.7 g/dL (3.2-5.2); Albumin/Globulin Ratio 0.4 (1-3); Alkaline Phosphatase 261 U/L (35-149); Anion Gap 4 mmol/L (2-11); Blood Urea Nitrogen 23 mg/dL (6-24); CO2 Carbon Dioxide 25 mmol/L (22-32); Calcium 7.4 mg/dL (8.6-10.3); Chloride 103 mmol/L (101-111); Creatinine, Serum 0.69 mg/dL (0.67-1.17); Globulin 3.9 g/dL (2-4); Glucose 108 mg/dL (70-100); Magnesium 1.8 mg/dL (1.9-2.7); Phosphorus 4.3 mg/dL (2.5-5.0); Potassium 4.2 mmol/L (3.5-5.0); Sodium 132 mmol/L (135-145); Total Protein 5.6 g/dL (6.4-8.9); eGFR CKD-EPI 93.6 (>60)
[2023-02-07] MEDS ORDERED: Magnesium Sulfate 2 gm BAG 2 GM/50 ML BAG IVPB ONE (06:12)
[2023-02-07 06:50] LABS: ABS Eosinophils 0.1 10^3/ul (0-0.6); ABS Lymphocytes 1.6 10^3/ul (1.0-4.8); ABS Monocytes 0.8 10^3/ul (0-0.8); ABS Neutrophils 7.9 10^3/ul (1.5-7.7); Eosinophil % 1.3 %; Hematocrit 21 % (42-52); Hemoglobin 6.8 g/dL (14.0-18.0); Lymphocyte % 15.2 %; Mean Corpuscular HGB Conc 32 g/dL (31-36); Mean Corpuscular Hemoglobin 26 pg (27-31); Mean Corpuscular Volume 81 fL (80-94); Mean Platelet Volume 8.4 fL (7.4-10.4); Platelet Count 511 10^3/uL (150-450); Red Cell Distribution Width 20 % (10-15); White Blood Count 10.4 10^3/uL (3.5-10.8)
[2023-02-07 07:09] LABS: INR 1.14 (0.88-1.18)
[2023-02-07] MEDS: Acetylcysteine INH SOL (RT) 200 MG/ML 4 ML VIAL INH SCH ×3 (08:12→19:34)
[2023-02-07] MEDS: Lidocaine PATCH 5% PATCH TRANSDERM SCH (08:47)
[2023-02-07] MEDS: Insulin GLARGINE 100 un/ml 10 ml VIAL SUBCUT SCH (09:11)
[2023-02-07] MEDS ORDERED: Furosemide 40 mg/4 ml IV VIAL IV SLOW PU ONE (12:04)
[2023-02-07 14:01] LABS: Hematocrit 27 % (42-52); Hemoglobin 8.7 g/dL (14.0-18.0)
[2023-02-07 14:08] LABS: Folate 12.94 ng/mL (5.90-24.80)
[2023-02-07 14:09] LABS: Vitamin B12 504 pg/mL (180-914)
[2023-02-07] MEDS ORDERED: Vancomycin 1,000 MG in NS 0.9% 250 ml 250 ML IVPB ONE (16:27)
[2023-02-07] MEDS ORDERED: Vancomycin per Pharmacy 1 EA NOTE FOLLOW UP SCH (17:00)
[2023-02-07] MEDS ORDERED: Vancomycin 1,500 MG in NS 0.9% 250 ml 250 ML IVPB ONE (17:00)
[2023-02-07] MEDS ORDERED: TPN CENT\\PICC SCH (17:01)
[2023-02-07] MEDS ORDERED: SODIUM CHLORIDE CENT\\PICC SCH (17:01)
[2023-02-07] MEDS ORDERED: POTASSIUM CHLORIDE TPN CENT\\PICC SCH (17:01)
[2023-02-07] MEDS ORDERED: [UNRECOGNIZED DRUG - OTHER] CENT\\PICC SCH (17:01)
[2023-02-07 18:15] LABS: ALT 40 U/L (7-52); AST 34 U/L (13-39); Alkaline Phosphatase 265 U/L (35-149); Anion Gap 3 mmol/L (2-11); Blood Urea Nitrogen 22 mg/dL (6-24); CO2 Carbon Dioxide 30 mmol/L (22-32); Calcium 7.5 mg/dL (8.6-10.3); Chloride 100 mmol/L (101-111); Creatinine, Serum 0.67 mg/dL (0.67-1.17); Glucose 146 mg/dL (70-100); Potassium 4.1 mmol/L (3.5-5.0); Sodium 133 mmol/L (135-145); Total Protein 5.9 g/dL (6.4-8.9); eGFR CKD-EPI 94.4 (>60)
[2023-02-07 18:18] LABS: Albumin/Globulin Ratio 0.4 (1-3)
[2023-02-07 18:19] LABS: Albumin < 1.7 g/dL (3.2-5.2); Globulin 4.2 g/dL (2-4)
[2023-02-07] MEDS: Pantoprazole VIAL 40 MG VIAL IV SCH (21:30)
[2023-02-07] MEDS: Collagenase 250 units/gm OINT 1 tube TOPICAL SCH (21:30)
[2023-02-08] MEDS: Albuterol/Ipratropium NEB.SOL (2.5/0.5 MG) 3 ML NEB.SOLN INH SCH ×4 (01:16→20:07)
[2023-02-08] MEDS: Heparin 5000 UNITS/ML 1 mL VIAL SUBCUT SCH ×3 (05:48→20:52)
[2023-02-08] MEDS ORDERED: Vancomycin 1,250 MG in NS 0.9% 250 ml 250 ML IVPB SCH (06:00)
[2023-02-08 06:06] LABS: ABS Basophils 0.1 10^3/ul (0-0.2); ABS Eosinophils 0.1 10^3/ul (0-0.6); ABS Lymphocytes 1.7 10^3/ul (1.0-4.8); ABS Monocytes 0.9 10^3/ul (0-0.8); ABS Neutrophils 7.7 10^3/ul (1.5-7.7); Eosinophil % 0.9 %; Hematocrit 25 % (42-52); Hemoglobin 8.3 g/dL (14.0-18.0); Lymphocyte % 16.2 %; Mean Corpuscular HGB Conc 33 g/dL (31-36); Mean Corpuscular Hemoglobin 27 pg (27-31); Mean Corpuscular Volume 84 fL (80-94); Mean Platelet Volume 8.1 fL (7.4-10.4); Platelet Count 513 10^3/uL (150-450); Red Blood Count 3.03 10^6 /uL (4.18-5.48); Red Cell Distribution Width 19 % (10-15); White Blood Count 10.6 10^3/uL (3.5-10.8)
[2023-02-08 06:42] LABS: ALT 38 U/L (7-52); AST 37 U/L (13-39); Alkaline Phosphatase 269 U/L (35-149); Anion Gap 4 mmol/L (2-11); Blood Urea Nitrogen 28 mg/dL (6-24); CO2 Carbon Dioxide 25 mmol/L (22-32); Calcium 7.3 mg/dL (8.6-10.3); Chloride 101 mmol/L (101-111); Creatinine, Serum 0.62 mg/dL (0.67-1.17); Glucose 138 mg/dL (70-100); Phosphorus 3.5 mg/dL (2.5-5.0); Potassium 4.4 mmol/L (3.5-5.0); Sodium 130 mmol/L (135-145); Total Protein 5.7 g/dL (6.4-8.9); eGFR CKD-EPI 96.6 (>60)
[2023-02-08 06:48] LABS: Albumin < 1.7 g/dL (3.2-5.2); Albumin/Globulin Ratio 0.4 (1-3)
[2023-02-08] MEDS: Acetylcysteine INH SOL (RT) 200 MG/ML 4 ML VIAL INH SCH ×2 (07:40→18:47)
[2023-02-08] MEDS: Lidocaine PATCH 5% PATCH TRANSDERM SCH (07:49)
[2023-02-08] MEDS: Morphine 2 MG/ML SYRINGE IV PRN (07:49)
[2023-02-08] MEDS: Acetaminophen IV 1 GM/100ML 1,000 MG/100 ML BAG IV PRN (07:54)
[2023-02-08] MEDS: Insulin GLARGINE 100 un/ml 10 ml VIAL SUBCUT SCH (10:19)
[2023-02-08] MEDS ORDERED: Albumin Human 25% 50 GM/200 ML BTL IV SCH (12:00)
[2023-02-08] MEDS ORDERED: ceFAZolin 2 GM in NS PREMIX 2 GM/100 ML BAG IVPB SCH (12:00)
[2023-02-08] MEDS: Collagenase 250 units/gm OINT 1 tube TOPICAL SCH ×2 (12:07→23:14)
[2023-02-08] MEDS: metroNIDAZOLE IV 500 MG/100ML 500 MG/100 ML BAG IVPB SCH ×2 (13:37→19:35)
[2023-02-08] MEDS: SODIUM CHLORIDE CENT\\PICC SCH (18:01)
[2023-02-08] MEDS: [UNRECOGNIZED DRUG - OTHER] CENT\\PICC SCH (18:01)
[2023-02-08] MEDS: TPN CENT\\PICC SCH (18:01)
[2023-02-08] MEDS: POTASSIUM CHLORIDE TPN CENT\\PICC SCH (18:01)
[2023-02-08] MEDS: cefTRIAXone 1 gm/50 mL D5W 1 GM/50 ML BAG IV SCH (18:27)
[2023-02-08] MEDS: Pantoprazole VIAL 40 MG VIAL IV SCH (20:50)
[2023-02-08] MEDS: Albumin Human 25% 25 GM/100 ML IV SCH ×2 (20:54→23:08)
[2023-02-09] MEDS: Albuterol/Ipratropium NEB.SOL (2.5/0.5 MG) 3 ML NEB.SOLN INH SCH ×2 (00:25→06:54)
[2023-02-09] MEDS: metroNIDAZOLE IV 500 MG/100ML 500 MG/100 ML BAG IVPB SCH ×4 (00:53→17:55)
[2023-02-09] MEDS ORDERED: Vancomycin Trough Check NOTE FOLLOW UP ONE (05:30)
[2023-02-09] MEDS: Heparin 5000 UNITS/ML 1 mL VIAL SUBCUT SCH ×3 (06:04→20:45)
[2023-02-09 06:31] LABS: ABS Eosinophils 0.2 10^3/ul (0-0.6); ABS Lymphocytes 1.8 10^3/ul (1.0-4.8); ABS Monocytes 0.7 10^3/ul (0-0.8); ABS Neutrophils 6.1 10^3/ul (1.5-7.7); Eosinophil % 1.9 %; Hematocrit 21 % (42-52); Hemoglobin 7.1 g/dL (14.0-18.0); Mean Corpuscular HGB Conc 33 g/dL (31-36); Mean Corpuscular Hemoglobin 27 pg (27-31); Mean Corpuscular Volume 82 fL (80-94); Mean Platelet Volume 7.8 fL (7.4-10.4); Platelet Count 473 10^3/uL (150-450); Red Blood Count 2.62 10^6 /uL (4.18-5.48); Red Cell Distribution Width 19 % (10-15); White Blood Count 8.8 10^3/uL (3.5-10.8)
[2023-02-09 07:05] LABS: ALT 28 U/L (7-52); AST 31 U/L (13-39); Albumin 2.1 g/dL (3.2-5.2); Albumin/Globulin Ratio 0.6 (1-3); Alkaline Phosphatase 210 U/L (35-149); Blood Urea Nitrogen 33 mg/dL (6-24); CO2 Carbon Dioxide 28 mmol/L (22-32); Calcium 7.6 mg/dL (8.6-10.3); Chloride 103 mmol/L (101-111); Creatinine, Serum 0.69 mg/dL (0.67-1.17); Globulin 3.5 g/dL (2-4); Glucose 99 mg/dL (70-100); Magnesium 2.2 mg/dL (1.9-2.7); Phosphorus 3.4 mg/dL (2.5-5.0); Potassium 4.4 mmol/L (3.5-5.0); Sodium 131 mmol/L (135-145); Total Protein 5.6 g/dL (6.4-8.9); eGFR CKD-EPI 93.6 (>60)
[2023-02-09] MEDS: Morphine 2 MG/ML SYRINGE IV PRN (09:07)
[2023-02-09] MEDS: Albumin Human 25% 25 GM/100 ML IV SCH ×2 (09:19→13:24)
[2023-02-09] MEDS: Collagenase 250 units/gm OINT 1 tube TOPICAL SCH (09:21)
[2023-02-09] MEDS: Lidocaine PATCH 5% PATCH TRANSDERM SCH (09:21)
[2023-02-09] MEDS ORDERED: Albuterol/Ipratropium NEB.SOL (2.5/0.5 MG) 3 ML NEB.SOLN INH PRN (11:32)
[2023-02-09] MEDS: Acetaminophen IV 1 GM/100ML 1,000 MG/100 ML BAG IV PRN (12:00)
[2023-02-09] MEDS: TPN CENT\\PICC SCH (16:50)
[2023-02-09] MEDS: [UNRECOGNIZED DRUG - OTHER] CENT\\PICC SCH (16:50)
[2023-02-09] MEDS: POTASSIUM CHLORIDE TPN CENT\\PICC SCH (16:50)
[2023-02-09] MEDS: cefTRIAXone 1 gm/50 mL D5W 1 GM/50 ML BAG IV SCH (16:50)
[2023-02-09] MEDS: SODIUM CHLORIDE CENT\\PICC SCH (16:50)
[2023-02-09] MEDS: Pantoprazole VIAL 40 MG VIAL IV SCH (20:45)
[2023-02-10] MEDS: metroNIDAZOLE IV 500 MG/100ML 500 MG/100 ML BAG IVPB SCH ×4 (00:31→19:17)
[2023-02-10] MEDS: diazePAM INJ CARPUJECT 5 MG/ML SYRINGE IV PRN ×2 (01:18→21:56)
[2023-02-10] MEDS: Collagenase 250 units/gm OINT 1 tube TOPICAL SCH ×4 (05:20→19:21)
[2023-02-10] MEDS: Heparin 5000 UNITS/ML 1 mL VIAL SUBCUT SCH ×3 (05:21→21:15)
[2023-02-10 05:38] LABS: ABS Eosinophils 0.2 10^3/ul (0-0.6); ABS Monocytes 0.9 10^3/ul (0-0.8); ABS Neutrophils 6.9 10^3/ul (1.5-7.7); Eosinophil % 1.6 %; Hematocrit 23 % (42-52); Hemoglobin 7.7 g/dL (14.0-18.0); Lymphocyte % 19.9 %; Mean Corpuscular HGB Conc 33 g/dL (31-36); Mean Corpuscular Hemoglobin 27 pg (27-31); Mean Corpuscular Volume 82 fL (80-94); Mean Platelet Volume 7.5 fL (7.4-10.4); Platelet Count 516 10^3/uL (150-450); Red Blood Count 2.83 10^6 /uL (4.18-5.48); Red Cell Distribution Width 19 % (10-15); White Blood Count 9.9 10^3/uL (3.5-10.8)
[2023-02-10 06:28] LABS: Albumin 2.1 g/dL (3.2-5.2); Albumin/Globulin Ratio 0.6 (1-3); Calcium 7.7 mg/dL (8.6-10.3); Creatinine, Serum 0.66 mg/dL (0.67-1.17); Globulin 3.7 g/dL (2-4); Phosphorus 2.8 mg/dL (2.5-5.0); Potassium 4.7 mmol/L (3.5-5.0); Total Bilirubin 0.4 mg/dL (0.2-1.0); Total Protein 5.8 g/dL (6.4-8.9); eGFR CKD-EPI 94.8 (>60)
[2023-02-10] MEDS: Lidocaine PATCH 5% PATCH TRANSDERM SCH (08:25)
[2023-02-10] MEDS: POTASSIUM CHLORIDE TPN CENT\\PICC SCH (17:27)
[2023-02-10] MEDS: TPN CENT\\PICC SCH (17:27)
[2023-02-10] MEDS: SODIUM CHLORIDE CENT\\PICC SCH (17:27)
[2023-02-10] MEDS: [UNRECOGNIZED DRUG - OTHER] CENT\\PICC SCH (17:27)
[2023-02-10] MEDS: cefTRIAXone 1 gm/50 mL D5W 1 GM/50 ML BAG IV SCH (17:27)
[2023-02-10] MEDS: Pantoprazole VIAL 40 MG VIAL IV SCH (21:14)
[2023-02-10] MEDS: Morphine 2 MG/ML SYRINGE IV PRN (23:49)
[2023-02-11] MEDS: metroNIDAZOLE IV 500 MG/100ML 500 MG/100 ML BAG IVPB SCH ×3 (01:57→13:37)
[2023-02-11] MEDS: Heparin 5000 UNITS/ML 1 mL VIAL SUBCUT SCH ×2 (04:02→13:36)
[2023-02-11 04:38] LABS: Albumin 1.9 g/dL (3.2-5.2); Albumin/Globulin Ratio 0.5 (1-3); Calcium 7.5 mg/dL (8.6-10.3); Creatinine, Serum 0.63 mg/dL (0.67-1.17); Globulin 3.6 g/dL (2-4); Phosphorus 2.7 mg/dL (2.5-5.0); Potassium 4.6 mmol/L (3.5-5.0); Total Bilirubin 0.3 mg/dL (0.2-1.0); Total Protein 5.5 g/dL (6.4-8.9); eGFR CKD-EPI 96.2 (>60)
[2023-02-11] MEDS: Lidocaine PATCH 5% PATCH TRANSDERM SCH (08:14)
[2023-02-11] MEDS: Collagenase 250 units/gm OINT 1 tube TOPICAL SCH (08:17)
[2023-02-11 14:14] VITALS: BP 141/72
== END 2023-02-11 16:25 | DRG 189 ==
LOC: ICU 17:19 → MED 02-08 17:26
PROVIDERS: ADMIT Hospitalist; ATTEND Hospitalist

== ENCOUNTER 2023-05-01 09:17 | Inpatient (IN) ==
[2023-05-01 11:53] LABS: Activated Partial Thrombo Time 32.5 seconds (26.0-38.0); INR 1.24 (0.88-1.18)
[2023-05-01 12:08] LABS: ABS Eosinophils 0.4 10^3/uL (0.0-0.5); ABS Lymphocytes 1.5 10^3/uL (1.0-4.8); ABS Monocytes 1.3 10^3/uL (0.0-1.1); ABS Neutrophils 7.3 10^3/uL (1.5-7.6); ABS Nucleated RBC 0.01 10^3/ul; Eosinophil % 3.3 %; Hematocrit 20.7 % (38-53); Lymphocyte % 14.1 %; Mean Corpuscular Hemoglobin 28.2 pg (27-33); Mean Corpuscular Hgb Conc 33.7 g/dL (31-36); Mean Corpuscular Volume 83.5 fL (80-97); Mean Platelet Volume 6.7 fL (7.5-11.2); Platelet Count 622 10^3/uL (150-450); Red Blood Count 2.48 10^6/uL (4.06-5.63); Red Cell Distribution Width 17.1 % (12-17); White Blood Count 10.5 10^3/uL (3.6-10.2)
[2023-05-01 12:20] LABS: Albumin 2.2 g/dL (3.2-5.2); Albumin/Globulin Ratio 0.5 (1-3); C Reactive Protein 171.11 mg/L (<8.01); Calcium 7.8 mg/dL (8.6-10.3); Creatinine, Serum 2.34 mg/dL (0.67-1.17); Globulin 4.5 g/dL (2-4); Potassium 3.5 mmol/L (3.5-5.0); Total Bilirubin 0.2 mg/dL (0.2-1.0); Total Protein 6.7 g/dL (6.4-8.9); eGFR CKD-EPI 27.4 (>60)
[2023-05-01 13:04] LABS: High Sensitivity Troponin 1 Hr 14 pg/mL (<20)
[2023-05-01] MEDS ORDERED: Furosemide 40 mg/4 ml IV VIAL IV SLOW PU ONE (15:59)
[2023-05-01] MEDS ORDERED: Bumetanide IV 0.25 MG/ML 4 ml VIAL (1 mg) IV SLOW PU ONE (16:55)
[2023-05-01] MEDS ORDERED: Senna TAB 8.6 mg TAB PO PRN (17:03)
[2023-05-01] MEDS ORDERED: Polyethylene Glycol 3350 17 GM PACKET PO PRN (17:03)
[2023-05-01] MEDS ORDERED: Azithromycin 500 mg/250 ml NS 500 MG/250 ML BAG IVPB SCH (18:00)
[2023-05-01] MEDS ORDERED: cefTRIAXone 1 gm/50 mL D5W 1 GM/50 ML BAG IV SCH (18:15)
[2023-05-01] MEDS: Mometasone/Formoter 200/5 MDI INH SCH (18:38)
[2023-05-01] MEDS: PANCRELIPASE 24000 UNIT PO SCH (19:43)
[2023-05-01] MEDS: Heparin 5000 UNITS/ML 1 mL VIAL SUBCUT SCH ×2 (21:30→21:31)
[2023-05-01] MEDS: cefTRIAXone 1 gm/50 mL D5W 1 GM/50 ML BAG IV SCH (21:30)
[2023-05-01] MEDS: MAGNESIUM GLYCINATE 100 MG PO SCH (21:31)
[2023-05-01] MEDS: MAGNESIUM PO SCH (21:31)
[2023-05-01] MEDS ORDERED: Heparin 5000 UNITS/ML 1 mL VIAL SUBCUT SCH (22:00)
[2023-05-02] MEDS: Heparin 5000 UNITS/ML 1 mL VIAL SUBCUT SCH (04:20)
[2023-05-02 06:07] LABS: ABS Eosinophils 0.7 10^3/uL (0.0-0.5); ABS Lymphocytes 2.4 10^3/uL (1.0-4.8); ABS Monocytes 1.3 10^3/uL (0.0-1.1); ABS Neutrophils 5.8 10^3/uL (1.5-7.6); ABS Nucleated RBC 0.01 10^3/ul; Eosinophil % 6.6 %; Hematocrit 21.5 % (38-53); Hemoglobin 7.2 g/dL (13.2-16.3); Lymphocyte % 23.7 %; Mean Corpuscular Hemoglobin 27.4 pg (27-33); Mean Corpuscular Hgb Conc 33.5 g/dL (31-36); Mean Corpuscular Volume 81.8 fL (80-97); Mean Platelet Volume 6.9 fL (7.5-11.2); Nucleated Red Blood Cells % 0.1 /100 WBC (0.0-0.4); Platelet Count 666 10^3/uL (150-450); Red Blood Count 2.63 10^6/uL (4.06-5.63); Red Cell Distribution Width 16.8 % (12-17); White Blood Count 10.2 10^3/uL (3.6-10.2)
[2023-05-02 06:28] LABS: INR 1.27 (0.88-1.18)
[2023-05-02] MEDS: Mometasone/Formoter 200/5 MDI INH SCH ×2 (07:00→19:21)
[2023-05-02] MEDS: MAGNESIUM GLYCINATE 100 MG PO SCH ×2 (08:12→22:16)
[2023-05-02] MEDS: PANCRELIPASE 24000 UNIT PO SCH (08:12)
[2023-05-02] MEDS: MAGNESIUM PO SCH ×2 (08:12→22:16)
[2023-05-02] MEDS: Collagenase 250 units/gm OINT 1 tube TOPICAL SCH (08:13)
[2023-05-02 08:30] LABS: Calcium 8.2 mg/dL (8.6-10.3); Magnesium 1.4 mg/dL (1.9-2.7); Potassium 3.7 mmol/L (3.5-5.0)
[2023-05-02 08:36] LABS: Creatinine, Serum 2.65 mg/dL (0.67-1.17); eGFR CKD-EPI 23.6 (>60)
[2023-05-02] MEDS ORDERED: Bumetanide IV 0.25 MG/ML 4 ml VIAL (1 mg) IV SLOW PU ONE ×3 (08:37→15:00)
[2023-05-02] MEDS ORDERED: PANCRELIPASE 12000 UNIT PO SCH (12:00)
[2023-05-02 12:38] LABS: Corrected Retic Count 0.7 % (0.5-1.5); Hematocrit for Retic CNT 22.1 % (38-53); Immature Retic Fraction 0.44; RBC Retic Count 2.64 10^6/ul (4.06-5.63)
[2023-05-02] MEDS: Albumin Human 25% 25 GM/100 ML IV SCH ×5 (14:01→22:51)
[2023-05-02] MEDS ORDERED: Acetaminophen IV 1 GM/100ML 1,000 MG/100 ML BAG IV ONE (14:45)
[2023-05-02 15:34] LABS: Body Fluid Appearance Cloudy; Body Fluid Color Amber; Body Fluid Source Pleural Fluid
[2023-05-02 16:08] LABS: Body Fluid WBC 776 /mcL
[2023-05-02 16:51] LABS: Body Fluid Mono 29 %; Body Fluid Other Cells 3; Body Fluid Total Cells Counted 200
[2023-05-02] MEDS: PANCRELIPASE 12000 UNIT PO PRN (17:29)
[2023-05-02 20:15] LABS: Hematocrit 25.9 % (38-53); Hemoglobin 8.7 g/dL (13.2-16.3)
[2023-05-02] MEDS ORDERED: Heparin 5000 UNITS/ML 1 mL VIAL SUBCUT ONE (22:13)
[2023-05-03] MEDS: Albumin Human 25% 25 GM/100 ML IV SCH (00:49)
[2023-05-03] MEDS: cefTRIAXone 1 gm/50 mL D5W 1 GM/50 ML BAG IV SCH ×2 (02:50→03:01)
[2023-05-03 06:00] LABS: ABS Eosinophils 0.3 10^3/uL (0.0-0.5); ABS Lymphocytes 1.7 10^3/uL (1.0-4.8); ABS Monocytes 1.5 10^3/uL (0.0-1.1); ABS Neutrophils 8.1 10^3/uL (1.5-7.6); Eosinophil % 2.9 %; Hematocrit 22.9 % (38-53); Hemoglobin 7.7 g/dL (13.2-16.3); Lymphocyte % 14.6 %; Mean Corpuscular Hemoglobin 27.1 pg (27-33); Mean Corpuscular Hgb Conc 33.7 g/dL (31-36); Mean Corpuscular Volume 80.4 fL (80-97); Mean Platelet Volume 6.8 fL (7.5-11.2); Platelet Count 619 10^3/uL (150-450); Red Blood Count 2.84 10^6/uL (4.06-5.63); Red Cell Distribution Width 16.2 % (12-17); White Blood Count 11.8 10^3/uL (3.6-10.2)
[2023-05-03 06:09] LABS: INR 1.34 (0.88-1.18)
[2023-05-03 06:22] LABS: Calcium 8.6 mg/dL (8.6-10.3); Creatinine, Serum 2.91 mg/dL (0.67-1.17); Magnesium 1.2 mg/dL (1.9-2.7); Potassium 3.5 mmol/L (3.5-5.0); eGFR CKD-EPI 21.1 (>60)
[2023-05-03] MEDS: Mometasone/Formoter 200/5 MDI INH SCH ×2 (07:08→19:29)
[2023-05-03] MEDS ORDERED: Magnesium Sulf 4 GM/100 ML IV 4,000 MG/100 ML BAG IVPB ONE (07:38)
[2023-05-03 08:17] LABS: Albumin 3.6 g/dL (3.2-5.2)
[2023-05-03] MEDS ORDERED: Bumetanide IV 0.25 MG/ML 4 ml VIAL (1 mg) IV SLOW PU ONE ×2 (09:03→15:00)
[2023-05-03] MEDS: Collagenase 250 units/gm OINT 1 tube TOPICAL SCH (09:48)
[2023-05-03] MEDS: MAGNESIUM GLYCINATE 100 MG PO SCH ×2 (09:49→21:44)
[2023-05-03] MEDS: MAGNESIUM PO SCH ×2 (09:49→21:44)
[2023-05-03] MEDS ORDERED: Desmopressin Acetate 30 MCG in NS 0.9% 50 ML 50 ML IVPB ONE (11:00)
[2023-05-03] MEDS: PANCRELIPASE 12000 UNIT PO PRN ×2 (13:19→17:10)
[2023-05-03] MEDS: KCL 20 MEQ/100 ML IVPREMIX 20 MEQ/100 ML BAG IV SCH ×2 (17:10→21:56)
[2023-05-03] MEDS ORDERED: Heparin 5000 UNITS/ML 1 mL VIAL SUBCUT ONE (17:39)
[2023-05-03 20:08] LABS: Hematocrit 26.5 % (38-53); Hemoglobin 8.8 g/dL (13.2-16.3)
[2023-05-04] MEDS: cefTRIAXone 1 gm/50 mL D5W 1 GM/50 ML BAG IV SCH (02:17)
[2023-05-04 05:37] LABS: ABS Eosinophils 0.4 10^3/uL (0.0-0.5); ABS Monocytes 1.4 10^3/uL (0.0-1.1); ABS Neutrophils 7.4 10^3/uL (1.5-7.6); ABS Nucleated RBC 0.01 10^3/ul; Eosinophil % 3.4 %; Hematocrit 23.7 % (38-53); Hemoglobin 8.1 g/dL (13.2-16.3); Lymphocyte % 17.7 %; Mean Corpuscular Hemoglobin 27.6 pg (27-33); Mean Corpuscular Volume 81.1 fL (80-97); Nucleated Red Blood Cells % 0.1 /100 WBC (0.0-0.4); Platelet Count 600 10^3/uL (150-450); Red Blood Count 2.92 10^6/uL (4.06-5.63); Red Cell Distribution Width 16.6 % (12-17); White Blood Count 11.2 10^3/uL (3.6-10.2)
[2023-05-04 05:56] LABS: Albumin/Globulin Ratio 0.8 (1-3); Calcium 8.5 mg/dL (8.6-10.3); Creatinine, Serum 3.25 mg/dL (0.67-1.17); Potassium 3.9 mmol/L (3.5-5.0); Total Bilirubin 0.5 mg/dL (0.2-1.0); eGFR CKD-EPI 18.5 (>60)
[2023-05-04] MEDS: Mometasone/Formoter 200/5 MDI INH SCH ×2 (06:56→19:48)
[2023-05-04] MEDS: PANCRELIPASE 12000 UNIT PO PRN ×3 (08:55→17:42)
[2023-05-04] MEDS: Collagenase 250 units/gm OINT 1 tube TOPICAL SCH (08:56)
[2023-05-04] MEDS: MAGNESIUM PO SCH ×2 (08:58→21:15)
[2023-05-04] MEDS: MAGNESIUM GLYCINATE 100 MG PO SCH ×2 (08:58→21:15)
[2023-05-04 10:37] LABS: Lactate Dehydrogenase, BF 306 U/L
[2023-05-04 15:19] LABS: Fluid Type, Protein, Total PLEURAL; Total Protein, BF 3.9 g/dL
[2023-05-04 21:49] LABS: Body Fluid Appearance Clear; Body Fluid Color Yellow; Body Fluid Source Pleural Fluid
[2023-05-04 22:41] LABS: Body Fluid WBC 310 /mcL
[2023-05-04 22:50] LABS: Body Fluid Mono 3 %; Body Fluid Other Cells 8; Body Fluid Total Cells Counted 200
[2023-05-05] MEDS: cefTRIAXone 1 gm/50 mL D5W 1 GM/50 ML BAG IV SCH (02:18)
[2023-05-05 06:16] LABS: ABS Eosinophils 0.5 10^3/uL (0.0-0.5); ABS Lymphocytes 2.2 10^3/uL (1.0-4.8); ABS Monocytes 1.3 10^3/uL (0.0-1.1); ABS Neutrophils 7.8 10^3/uL (1.5-7.6); Eosinophil % 4.5 %; Hematocrit 25.1 % (38-53); Hemoglobin 8.4 g/dL (13.2-16.3); Lymphocyte % 18.9 %; Mean Corpuscular Hgb Conc 33.5 g/dL (31-36); Mean Corpuscular Volume 80.7 fL (80-97); Mean Platelet Volume 6.9 fL (7.5-11.2); Platelet Count 633 10^3/uL (150-450); Red Blood Count 3.11 10^6/uL (4.06-5.63); Red Cell Distribution Width 16.7 % (12-17); White Blood Count 11.9 10^3/uL (3.6-10.2)
[2023-05-05 06:32] LABS: Albumin 2.8 g/dL (3.2-5.2); Albumin/Globulin Ratio 0.7 (1-3); Calcium 8.4 mg/dL (8.6-10.3); Creatinine, Serum 3.41 mg/dL (0.67-1.17); Globulin 4.2 g/dL (2-4); Magnesium 1.8 mg/dL (1.9-2.7); Potassium 3.6 mmol/L (3.5-5.0); Total Bilirubin 0.3 mg/dL (0.2-1.0); eGFR CKD-EPI 17.5 (>60)
[2023-05-05] MEDS: Mometasone/Formoter 200/5 MDI INH SCH ×2 (06:55→20:42)
[2023-05-05] MEDS ORDERED: Magnesium Sulfate 2 gm BAG 2 GM/50 ML BAG IVPB ONE (07:16)
[2023-05-05] MEDS: Collagenase 250 units/gm OINT 1 tube TOPICAL SCH (08:41)
[2023-05-05] MEDS: MAGNESIUM GLYCINATE 100 MG PO SCH ×2 (08:42→21:14)
[2023-05-05] MEDS: PANCRELIPASE 12000 UNIT PO PRN ×3 (08:42→17:09)
[2023-05-05] MEDS: MAGNESIUM PO SCH ×2 (08:42→21:14)
[2023-05-05] MEDS ORDERED: Potassium Chlor 20 meq TAB.ER PO ONE (16:47)
[2023-05-06] MEDS: cefTRIAXone 1 gm/50 mL D5W 1 GM/50 ML BAG IV SCH (02:19)
[2023-05-06 06:03] LABS: ABS Eosinophils 0.6 10^3/uL (0.0-0.5); ABS Lymphocytes 2.3 10^3/uL (1.0-4.8); ABS Monocytes 1.3 10^3/uL (0.0-1.1); ABS Neutrophils 7.3 10^3/uL (1.5-7.6); Eosinophil % 4.9 %; Hematocrit 24.6 % (38-53); Hemoglobin 8.3 g/dL (13.2-16.3); Lymphocyte % 19.8 %; Mean Corpuscular Hemoglobin 27.7 pg (27-33); Mean Corpuscular Hgb Conc 33.6 g/dL (31-36); Mean Corpuscular Volume 82.4 fL (80-97); Platelet Count 617 10^3/uL (150-450); Red Blood Count 2.99 10^6/uL (4.06-5.63); Red Cell Distribution Width 17.1 % (12-17); White Blood Count 11.5 10^3/uL (3.6-10.2)
[2023-05-06 06:13] LABS: Albumin 2.6 g/dL (3.2-5.2); Albumin/Globulin Ratio 0.6 (1-3); Calcium 8.3 mg/dL (8.6-10.3); Creatinine, Serum 3.74 mg/dL (0.67-1.17); Globulin 4.1 g/dL (2-4); Magnesium 2.1 mg/dL (1.9-2.7); Potassium 3.9 mmol/L (3.5-5.0); Total Bilirubin 0.3 mg/dL (0.2-1.0); Total Protein 6.7 g/dL (6.4-8.9); eGFR CKD-EPI 15.6 (>60)
[2023-05-06] MEDS: Mometasone/Formoter 200/5 MDI INH SCH ×2 (08:02→19:15)
[2023-05-06] MEDS: PANCRELIPASE 12000 UNIT PO PRN ×4 (09:30→17:30)
[2023-05-06] MEDS: MAGNESIUM PO SCH ×2 (09:31→20:02)
[2023-05-06] MEDS: MAGNESIUM GLYCINATE 100 MG PO SCH ×2 (09:31→20:02)
[2023-05-06] MEDS: Collagenase 250 units/gm OINT 1 tube TOPICAL SCH (09:48)
[2023-05-06] MEDS ORDERED: Bumetanide IV 0.25 MG/ML 4 ml VIAL (1 mg) IV SLOW PU SCH (13:00)
[2023-05-06] MEDS ORDERED: Albumin Human 25% 12.5 GM/50 ML BTL IV ONE ×2 (13:38→18:00)
[2023-05-06] MEDS ORDERED: Bumetanide IV 0.25 MG/ML 4 ml VIAL (1 mg) IV SLOW PU ONE (15:00)
[2023-05-07 06:16] LABS: ABS Lymphocytes 1.4 10^3/uL (1.0-4.8); ABS Monocytes 0.4 10^3/uL (0.0-1.1); ABS Neutrophils 9.6 10^3/uL (1.5-7.6); ABS Nucleated RBC 0.01 10^3/ul; Hematocrit 25.8 % (38-53); Hemoglobin 8.6 g/dL (13.2-16.3); Mean Corpuscular Hemoglobin 26.9 pg (27-33); Mean Corpuscular Hgb Conc 33.3 g/dL (31-36); Mean Corpuscular Volume 80.9 fL (80-97); Mean Platelet Volume 7.3 fL (7.5-11.2); Platelet Count 691 10^3/uL (150-450); Red Blood Count 3.19 10^6/uL (4.06-5.63); Red Cell Distribution Width 16.6 % (12-17); White Blood Count 11.3 10^3/uL (3.6-10.2)
[2023-05-07 06:32] LABS: Albumin/Globulin Ratio 0.7 (1-3); C Reactive Protein 209.32 mg/L (<8.01); Calcium 8.9 mg/dL (8.6-10.3); Creatinine, Serum 3.62 mg/dL (0.67-1.17); Globulin 4.3 g/dL (2-4); Total Bilirubin 0.3 mg/dL (0.2-1.0); Total Protein 7.3 g/dL (6.4-8.9); eGFR CKD-EPI 16.2 (>60)
[2023-05-07] MEDS: Mometasone/Formoter 200/5 MDI INH SCH ×2 (07:15→19:02)
[2023-05-07] MEDS: Bumetanide IV 0.25 MG/ML 4 ml VIAL (1 mg) IV SLOW PU SCH (08:18)
[2023-05-07] MEDS: Heparin 5000 UNITS/ML 1 mL VIAL SUBCUT SCH ×3 (08:18→21:26)
[2023-05-07] MEDS: MAGNESIUM GLYCINATE 100 MG PO SCH ×2 (08:19→21:26)
[2023-05-07] MEDS: MAGNESIUM PO SCH ×2 (08:19→21:26)
[2023-05-07] MEDS: PANCRELIPASE 12000 UNIT PO PRN ×3 (08:20→17:43)
[2023-05-07 08:50] LABS: Activated Partial Thrombo Time 32.4 seconds (26.0-38.0); INR 1.09 (0.88-1.18)
[2023-05-07 14:15] LABS: Fluid Type, Protein, Total PLEURAL; Lactate Dehydrogenase, BF 206 U/L; Total Protein, BF 4.2 g/dL
[2023-05-07] MEDS ORDERED: Bumetanide IV 0.25 MG/ML 4 ml VIAL (1 mg) IV SLOW PU ONE (15:00)
[2023-05-08] MEDS: Heparin 5000 UNITS/ML 1 mL VIAL SUBCUT SCH ×2 (06:02→14:51)
[2023-05-08 06:45] LABS: Hematocrit 26.5 % (38-53); Mean Corpuscular Hemoglobin 27.5 pg (27-33); Mean Corpuscular Hgb Conc 33.8 g/dL (31-36); Mean Corpuscular Volume 81.6 fL (80-97); Mean Platelet Volume 7.4 fL (7.5-11.2); Platelet Count 775 10^3/uL (150-450); Red Blood Count 3.25 10^6/uL (4.06-5.63); Red Cell Distribution Width 16.7 % (12-17); White Blood Count 20.5 10^3/uL (3.6-10.2)
[2023-05-08 07:05] LABS: Albumin 2.9 g/dL (3.2-5.2); Albumin/Globulin Ratio 0.7 (1-3); Calcium 8.8 mg/dL (8.6-10.3); Creatinine, Serum 3.49 mg/dL (0.67-1.17); Globulin 4.4 g/dL (2-4); Magnesium 1.9 mg/dL (1.9-2.7); Potassium 3.7 mmol/L (3.5-5.0); Total Bilirubin 0.2 mg/dL (0.2-1.0); Total Protein 7.3 g/dL (6.4-8.9)
[2023-05-08] MEDS: Mometasone/Formoter 200/5 MDI INH SCH (07:07)
[2023-05-08] MEDS: Bumetanide IV 0.25 MG/ML 4 ml VIAL (1 mg) IV SLOW PU SCH (08:03)
[2023-05-08] MEDS: MAGNESIUM GLYCINATE 100 MG PO SCH (08:04)
[2023-05-08] MEDS: PANCRELIPASE 12000 UNIT PO PRN ×2 (08:04→12:15)
[2023-05-08] MEDS: MAGNESIUM PO SCH (08:04)
[2023-05-08 08:26] LABS: ABS Lymphocytes 1.6 10^3/uL (1.0-4.8); ABS Monocytes 1.9 10^3/uL (0.0-1.1); ABS Neutrophils 16.9 10^3/uL (1.5-7.6); ABS Nucleated RBC 0.01 10^3/ul; Lymphocyte % 7.9 %
[2023-05-08 15:05] VITALS: BP 132/71
[2023-05-08 20:35] LABS: Case Number KR-23-3750
== END 2023-05-08 15:45 | disposition home or self-care (01) | DRG 871 ==
LOC: ED 09:17 → EDHOLD 09:17 → SUATTDRO 17:04 → EDHOLD 19:00 → MED 19:31
PROVIDERS: ADMIT Internal Medicine; ATTEND Internal Medicine

== ENCOUNTER 2023-06-11 22:24 | Observation (INO) ==
[2023-06-11] MEDS ORDERED: NORMOSOL-R pH 7.4 SEPSIS* BAG 2,330 ML IV ONE (23:12)
[2023-06-11 23:34] LABS: ABS Lymphocytes 0.4 10^3/uL (1.0-4.8); ABS Monocytes 0.2 10^3/uL (0.0-1.1); ABS Neutrophils 10.9 10^3/uL (1.5-7.6); Eosinophil % 0.4 %; Hematocrit 27.9 % (38-53); Hemoglobin 9.4 g/dL (13.2-16.3); Lymphocyte % 3.5 %; Mean Corpuscular Hemoglobin 27.2 pg (27-33); Mean Corpuscular Hgb Conc 33.6 g/dL (31-36); Mean Corpuscular Volume 81.1 fL (80-97); Mean Platelet Volume 7.1 fL (7.5-11.2); Platelet Count 282 10^3/uL (150-450); Red Blood Count 3.44 10^6/uL (4.06-5.63); Red Cell Distribution Width 18.6 % (12-17); White Blood Count 11.6 10^3/uL (3.6-10.2)
[2023-06-11] MEDS ORDERED: Piperacillin/Tazobac ADVAN 3.375 GM in NS 0.9% 100 ml BAG 100 ML IV ONE (23:44)
[2023-06-11 23:50] LABS: C Reactive Protein 13.16 mg/L (<8.01); Calcium 8.2 mg/dL (8.6-10.3); Creatinine, Serum 1.82 mg/dL (0.67-1.17); Globulin 2.9 g/dL (2-4); Potassium 3.4 mmol/L (3.5-5.0); Total Bilirubin 0.4 mg/dL (0.2-1.0); Total Protein 5.9 g/dL (6.4-8.9); eGFR CKD-EPI 37.1 (>60)
[2023-06-11 23:56] LABS: Urine Appearance Cloudy; Urine Bilirubin Negative (Negative); Urine Blood 3+ (Negative); Urine Color Yellow; Urine Glucose Negative (Negative); Urine Ketones Negative (Negative); Urine Nitrite Negative (Negative); Urine Protein 1+(30 mg/dL) (Negative); Urine Specific Gravity 1.013 (1.002-1.030); Urine Urobilinogen Negative (Negative)
[2023-06-12] MEDS ORDERED: Vancomycin 1,000 MG in NS 0.9% 250 ml 250 ML IVPB ONE
[2023-06-12 00:07] LABS: Urine Bacteria Absent (Absent); Urine Red Blood Cell 2+(6-10/hpf) (Absent); Urine White Blood Cell Trace(0-5/hpf) (Absent)
[2023-06-12 00:23] LABS: Activated Partial Thrombo Time 25.2 seconds (26.0-38.0); INR 0.94 (0.88-1.18)
[2023-06-12] MEDS ORDERED: Iodixanol (CONTRAST) 320 MG/ML 100 ML SDV IV ONE (00:24)
[2023-06-12 02:01] LABS: High Sensitivity Troponin 1 Hr 28 pg/mL (<20)
[2023-06-12] MEDS ORDERED: Ondansetron 4 mg VIAL 2 MG/ML 2 ml VIAL IV PRN (04:32)
[2023-06-12 04:51] LABS: ABS Eosinophils 0.1 10^3/uL (0.0-0.5); ABS Monocytes 0.5 10^3/uL (0.0-1.1); ABS Neutrophils 18.6 10^3/uL (1.5-7.6); Eosinophil % 0.5 %; Hemoglobin 8.9 g/dL (13.2-16.3); Mean Corpuscular Hemoglobin 26.9 pg (27-33); Mean Corpuscular Hgb Conc 32.8 g/dL (31-36); Mean Platelet Volume 7.3 fL (7.5-11.2); Platelet Count 293 10^3/uL (150-450); Red Blood Count 3.29 10^6/uL (4.06-5.63); Red Cell Distribution Width 18.8 % (12-17); White Blood Count 20.3 10^3/uL (3.6-10.2)
[2023-06-12 05:08] LABS: Albumin 2.9 g/dL (3.2-5.2); Calcium 7.8 mg/dL (8.6-10.3); Creatinine, Serum 1.77 mg/dL (0.67-1.17); Globulin 2.8 g/dL (2-4); Potassium 3.5 mmol/L (3.5-5.0); Total Bilirubin 0.5 mg/dL (0.2-1.0); Total Protein 5.7 g/dL (6.4-8.9); eGFR CKD-EPI 38.3 (>60)
[2023-06-12] MEDS: Enoxaparin 40 MG/0.4 ML SYR SUBCUT SCH (05:35)
[2023-06-12] MEDS: NS 0.9% 1000 ml BAG 1,000 ML IV SCH ×2 (05:36→15:41)
[2023-06-12 05:53] LABS: C Reactive Protein 38.75 mg/L (<8.01)
[2023-06-12] MEDS ORDERED: Cefepime 2 GM in Dextrose 2 GM/50 ML BAG IV SCH (08:00)
[2023-06-12] MEDS: Pantoprazole VIAL 40 MG VIAL IV SCH (08:28)
[2023-06-12] MEDS: NF:Pancrelipase 12,000 units (NF) PO SCH ×2 (09:27→11:09)
[2023-06-12] MEDS: Mometasone/Formoter 200/5 MDI INH SCH ×2 (09:38→20:51)
[2023-06-12] MEDS: PANCRELIPASE 12000 UNIT PO SCH ×4 (10:27→21:17)
[2023-06-12 11:24] LABS: RBC Parasite Smear No Parasites Seen (No Parasite)
[2023-06-13 05:54] LABS: ABS Eosinophils 0.1 10^3/uL (0.0-0.5); ABS Lymphocytes 1.7 10^3/uL (1.0-4.8); ABS Monocytes 0.8 10^3/uL (0.0-1.1); ABS Neutrophils 7.6 10^3/uL (1.5-7.6); ABS Nucleated RBC 0.01 10^3/ul; Eosinophil % 1.2 %; Hematocrit 23.1 % (38-53); Hemoglobin 7.8 g/dL (13.2-16.3); Lymphocyte % 16.3 %; Mean Corpuscular Hgb Conc 33.6 g/dL (31-36); Mean Corpuscular Volume 83.4 fL (80-97); Mean Platelet Volume 7.2 fL (7.5-11.2); Nucleated Red Blood Cells % 0.1 /100 WBC (0.0-0.4); Platelet Count 223 10^3/uL (150-450); Red Blood Count 2.77 10^6/uL (4.06-5.63); Red Cell Distribution Width 19.7 % (12-17); White Blood Count 10.2 10^3/uL (3.6-10.2)
[2023-06-13] MEDS: Enoxaparin 40 MG/0.4 ML SYR SUBCUT SCH (06:06)
[2023-06-13 06:10] LABS: C Reactive Protein 77.46 mg/L (<8.01); Calcium 7.7 mg/dL (8.6-10.3); Creatinine, Serum 1.65 mg/dL (0.67-1.17); Potassium 3.7 mmol/L (3.5-5.0); eGFR CKD-EPI 41.7 (>60)
[2023-06-13] MEDS: Mometasone/Formoter 200/5 MDI INH SCH (07:01)
[2023-06-13] MEDS: Pantoprazole VIAL 40 MG VIAL IV SCH (08:22)
[2023-06-13] MEDS: PANCRELIPASE 12000 UNIT PO SCH (08:25)
[2023-06-13 09:53] VITALS: BP 121/66
[2023-06-14 00:39] LABS: IgG Immunoblot Negative (Negative); IgM Immunoblot Negative (Negative)
[2023-06-14 14:56] LABS: Anaplasma phagocytophilum Negative (Negative); B. miyamotoi PCR, B Negative (Negative); Babesia divergens/MO-1 Negative (Negative); Babesia ducani Negative (Negative); Ehrlichia chaffeensis Negative (Negative); Ehrlichia ewingii/canis Negative (Negative); Ehrlichia muris eauclairensis Negative (Negative)
== END 2023-06-13 12:15 | disposition home or self-care (01) ==
LOC: EDHOLD 22:24 → ED 22:24 → SUATTDRO 06-12 04:18 → MED 06-12 20:06
PROVIDERS: ADMIT Hospitalist; ATTEND Student in an Organized Health Care Education/Training Program

== ENCOUNTER 2024-03-02 13:49 | Inpatient (IN) ==
[2024-03-02 14:06] LABS: ABS Lymphocytes 1.6 10^3/uL (1.0-4.8); ABS Monocytes 0.4 10^3/uL (0.0-1.1); ABS Neutrophils 10.9 10^3/uL (1.5-7.6); ABS Nucleated RBC 0.01 10^3/ul; Hematocrit 33.8 % (38-53); Hemoglobin 11.1 g/dL (13.2-16.3); Lymphocyte % 12.1 %; Mean Corpuscular Hemoglobin 28.4 pg (27-33); Mean Corpuscular Volume 86.3 fL (80-97); Mean Platelet Volume 7.9 fL (7.5-11.2); Nucleated Red Blood Cells % 0.1 %/100WBC (0.0-0.8); Platelet Count 422 10^3/uL (150-450); Red Blood Count 3.92 10^6/uL (4.06-5.63); Red Cell Distribution Width 15.3 % (12-17); White Blood Count 12.9 10^3/uL (3.6-10.2)
[2024-03-02 14:32] LABS: Albumin 3.8 g/dL (3.2-5.2); Calcium 9.2 mg/dL (8.6-10.3); Creatinine, Serum 1.4 mg/dL (0.67-1.17); Globulin 3.7 g/dL (2-4); Potassium 3.5 mmol/L (3.5-5.0); Total Bilirubin 0.3 mg/dL (0.2-1.0); Total Protein 7.5 g/dL (6.4-8.9); eGFR CKD-EPI 50.5 (>60)
[2024-03-02] MEDS: Morphine 2 MG/ML SYRINGE IV PRN ×2 (17:26→19:06)
[2024-03-02] MEDS ORDERED: PANCRELIPASE 6000 UNIT PO SCH (18:15)
[2024-03-02] MEDS: Mometasone/Formoter 200/5 MDI INH SCH (19:18)
[2024-03-02] MEDS: HYDROmorphone 0.5 MG/0.5 ML SYRINGE IV SLOW PU ONE (19:53)
[2024-03-02] MEDS: NS 0.9% 1000 ml BAG 1,000 ML IV SCH (19:57)
[2024-03-02] MEDS: LIPASE PO SCH (20:01)
[2024-03-02] MEDS: AMYLASE PO SCH (20:01)
[2024-03-02] MEDS: PROTEASE PO SCH (20:01)
[2024-03-02] MEDS: Morphine 2 MG/ML SYRINGE IV ONE (22:05)
[2024-03-02] MEDS: PANCRELIPASE 6000 UNIT PO SCH (22:40)
[2024-03-03] MEDS: HYDROmorphone 0.5 MG/0.5 ML SYRINGE IV SLOW PU PRN ×3 (00:12→15:34)
[2024-03-03 07:02] LABS: Albumin 3.2 g/dL (3.2-5.2); Albumin/Globulin Ratio 1.1 (1-3); Calcium 8.5 mg/dL (8.6-10.3); Creatinine, Serum 1.27 mg/dL (0.67-1.17); Globulin 2.8 g/dL (2-4); Potassium 3.5 mmol/L (3.5-5.0); Total Bilirubin 0.3 mg/dL (0.2-1.0); eGFR CKD-EPI 56.8 (>60)
[2024-03-03] MEDS: PANCRELIPASE 6000 UNIT PO SCH ×2 (08:17→09:25)
[2024-03-03] MEDS ORDERED: Potassium Chlor 10 meq TAB PO SCH (09:00)
[2024-03-03] MEDS: Dexamethasone IV 4 MG/ML VIAL 1 ml VIAL IV SLOW PU ONE (14:24)
[2024-03-03] MEDS: PALONOSETRON HCL 0.05 MG/ML (0.25 MG) SYRINGE (0.05 MG/ML) IV ONE (14:33)
[2024-03-03] MEDS: D5W IVPB ONE ×2 (15:33)
[2024-03-03] MEDS: LEUCOVORIN CALCIUM IVPB ONE (15:33)
[2024-03-03] MEDS: OXALIPLATIN IVPB ONE (15:33)
[2024-03-03] MEDS: FLUOROURACIL IVPB ONE ×2 (17:42→18:16)
[2024-03-03] MEDS: NS 0.9% IVPB ONE ×2 (17:42→18:16)
[2024-03-04 05:57] LABS: ABS Lymphocytes 0.8 10^3/uL (1.0-4.8); ABS Monocytes 0.9 10^3/uL (0.0-1.1); ABS Neutrophils 9.5 10^3/uL (1.5-7.6); ABS Nucleated RBC 0.01 10^3/ul; Hematocrit 29.8 % (38-53); Hemoglobin 9.9 g/dL (13.2-16.3); Lymphocyte % 7.5 %; Mean Corpuscular Hemoglobin 28.8 pg (27-33); Mean Corpuscular Hgb Conc 33.3 g/dL (31-36); Mean Corpuscular Volume 86.3 fL (80-97); Mean Platelet Volume 8.3 fL (7.5-11.2); Nucleated Red Blood Cells % 0.1 %/100WBC (0.0-0.8); Platelet Count 321 10^3/uL (150-450); Red Blood Count 3.46 10^6/uL (4.06-5.63); Red Cell Distribution Width 15.1 % (12-17); White Blood Count 11.2 10^3/uL (3.6-10.2)
[2024-03-04 06:14] LABS: Albumin 3.1 g/dL (3.2-5.2); Albumin/Globulin Ratio 1.1 (1-3); Calcium 8.5 mg/dL (8.6-10.3); Creatinine, Serum 1.09 mg/dL (0.67-1.17); Globulin 2.9 g/dL (2-4); Potassium 4.3 mmol/L (3.5-5.0); Total Bilirubin 0.3 mg/dL (0.2-1.0); eGFR CKD-EPI 68.2 (>60)
[2024-03-04] MEDS: Iodixanol (CONTRAST) 320 MG/ML 100 ML SDV IV ONE (15:54)
[2024-03-04] MEDS: oxyCODONE SR 10 mg TAB PO SCH (21:52)
[2024-03-04] MEDS ORDERED: LORazepam 2 MG/ML 1 mL Syringe IV ONE (23:00)
[2024-03-04] MEDS: LORazepam 2 mg VIAL 1 ml IV PUSH ONE (23:36)
[2024-03-05 05:50] LABS: ABS Lymphocytes 1.4 10^3/uL (1.0-4.8); ABS Monocytes 1.4 10^3/uL (0.0-1.1); ABS Neutrophils 14.9 10^3/uL (1.5-7.6); Hematocrit 31.6 % (38-53); Hemoglobin 10.5 g/dL (13.2-16.3); Lymphocyte % 7.8 %; Mean Corpuscular Hemoglobin 28.6 pg (27-33); Mean Corpuscular Hgb Conc 33.2 g/dL (31-36); Mean Corpuscular Volume 86.1 fL (80-97); Mean Platelet Volume 8.1 fL (7.5-11.2); Platelet Count 335 10^3/uL (150-450); Red Blood Count 3.67 10^6/uL (4.06-5.63); Red Cell Distribution Width 14.8 % (12-17); White Blood Count 17.7 10^3/uL (3.6-10.2)
[2024-03-05 06:36] LABS: Albumin/Globulin Ratio 1.1 (1-3); Calcium 8.4 mg/dL (8.6-10.3); Creatinine, Serum 1.15 mg/dL (0.67-1.17); Globulin 2.8 g/dL (2-4); Magnesium 1.5 mg/dL (1.9-2.7); Potassium 4.2 mmol/L (3.5-5.0); Total Bilirubin 0.3 mg/dL (0.2-1.0); Total Protein 5.8 g/dL (6.4-8.9); eGFR CKD-EPI 63.9 (>60)
[2024-03-05] MEDS ORDERED: Polyethylene Glycol 3350 17 GM PACKET PO PRN (10:43)
[2024-03-05] MEDS: Magnesium Sulf 4 GM/100 ML IV 4,000 MG/100 ML BAG IVPB ONE (11:30)
[2024-03-05 12:40] LABS: Urine Appearance Clear; Urine Bilirubin Negative (Negative); Urine Blood Negative (Negative); Urine Color Light-Yellow; Urine Glucose Negative (Negative); Urine Ketones Negative (Negative); Urine Nitrite Negative (Negative); Urine Protein Trace (Negative); Urine Urobilinogen Negative (Negative); Urine pH 5.5 (5.0-8.0)
[2024-03-05 12:52] LABS: UR Microalbumin (mg/L) 103.2 mg/L; Urine Creatinine 67.26 mg/dL; Urine Creatinine Concentration 67.26 mg/dL (20.00-370.00); Urine Microalbumin/Creatinine 153.4 mcg/mg (<31)
[2024-03-05 12:58] LABS: Albumin 3.1 g/dL (3.2-5.2); Phosphorus 3.7 mg/dL (2.5-5.0)
[2024-03-05 13:24] LABS: Vitamin D Total 25(OH) 12.5 ng/mL (20-50)
[2024-03-05 14:15] VITALS: BP 114/73
== END 2024-03-05 16:52 | disposition home or self-care (01) | DRG 948 ==
LOC: CHOA 13:49 → MED 17:10
PROVIDERS: ADMIT Internal Medicine Hematology & Oncology; ATTEND Internal Medicine Medical Oncology

== ENCOUNTER 2024-04-03 08:41 | Observation (INO) ==
[2024-04-03 09:32] LABS: Urine Appearance Clear; Urine Bilirubin Negative (Negative); Urine Blood Negative (Negative); Urine Color Light-Yellow; Urine Glucose Negative (Negative); Urine Ketones Negative (Negative); Urine Nitrite Negative (Negative); Urine Protein Trace (Negative); Urine Specific Gravity 1.015 (1.002-1.030); Urine Urobilinogen Negative (Negative); Urine pH 5.5 (5.0-8.0)
[2024-04-03 09:41] LABS: Activated Partial Thrombo Time 26.3 seconds (26.0-38.0); INR 1.1 (0.83-1.13)
[2024-04-03 09:43] LABS: Albumin 2.9 g/dL (3.2-5.2); Albumin/Globulin Ratio 1.1 (1-3); C Reactive Protein 38.84 mg/L (<8.01); Calcium 8.3 mg/dL (8.6-10.3); Creatinine, Serum 1.31 mg/dL (0.67-1.17); Globulin 2.7 g/dL (2-4); Potassium 3.6 mmol/L (3.5-5.0); Total Bilirubin 0.7 mg/dL (0.2-1.0); Total Protein 5.6 g/dL (6.4-8.9); eGFR CKD-EPI 54.7 (>60)
[2024-04-03] MEDS: Piperacillin/Tazobac 3.375 BAG 3.375 GM/100 ML BAG IV ONE (09:43)
[2024-04-03] MEDS: Lactated Ringers 1000 ml BAG 1,000 ML IV ONE (09:43)
[2024-04-03 09:49] LABS: Hematocrit 26.1 % (38-53); Hemoglobin 8.7 g/dL (13.2-16.3); Mean Corpuscular Hgb Conc 33.4 g/dL (31-36); Mean Corpuscular Volume 86.7 fL (80-97); Mean Platelet Volume 8.2 fL (7.5-11.2); Platelet Count 270 10^3/uL (150-450); Red Blood Count 3.01 10^6/uL (4.06-5.63); Red Cell Distribution Width 15.5 % (12-17); White Blood Count 0.9 10^3/uL (3.6-10.2)
[2024-04-03 10:19] LABS: ABS Lymphocytes 0.3 10^3/uL (1.0-4.8); ABS Neutrophils 0.6 10^3/uL (1.5-7.6); ABS Nucleated RBC 0.01 10^3/ul; Eosinophil % 0.4 %; Lymphocyte % 30.1 %; Nucleated Red Blood Cells % 0.6 %/100WBC (0.0-0.8)
[2024-04-03 10:58] LABS: High Sensitivity Troponin 1 Hr 171 pg/mL (<20)
[2024-04-03] MEDS: NS 0.9% 1000 ml BAG 1,000 ML IV ONE (11:39)
[2024-04-03] MEDS ORDERED: PANCRELIPASE 6000 UNIT PO PRN (12:00)
[2024-04-03] MEDS ORDERED: Zosyn per Pharmacy NOTE FOLLOW UP SCH (12:00)
[2024-04-03] MEDS: PANCRELIPASE 6000 UNIT PO SCH (13:48)
[2024-04-03] MEDS: Mometasone/Formoter 200/5 MDI INH SCH (14:04)
[2024-04-03] MEDS: Azithromycin 500 mg/250 ml NS 500 MG/250 ML BAG IVPB SCH (14:48)
[2024-04-03] MEDS: Morphine ER 30 mg TAB ** extended release PO SCH (14:48)
[2024-04-03] MEDS: Enoxaparin 30 MG/0.3 ML SYR SUBCUT SCH (14:48)
[2024-04-03 15:48] LABS: High Sensitivity Troponin 3 Hr 381 pg/mL (<20)
[2024-04-03] MEDS: Lactated Ringers 1000 ml BAG 1,000 ML IV SCH (16:25)
[2024-04-03] MEDS: NS 0.9% 500 ml BAG 500 ML IV ONE (16:57)
[2024-04-03] MEDS: Cefepime 2 GM in Dextrose 2 GM/50 ML BAG IV SCH (17:03)
[2024-04-03 20:59] LABS: High Sensitivity Troponin 1 Hr 264 pg/mL (<20)
[2024-04-04] MEDS: Ondansetron ODT 4 mg TAB 4 MG TAB PO PRN (00:47)
[2024-04-04] MEDS: NS 0.9% 500 ml BAG 500 ML IV ONE (00:50)
[2024-04-04 06:05] LABS: Hematocrit 23.8 % (38-53); Hemoglobin 7.9 g/dL (13.2-16.3); Mean Corpuscular Hemoglobin 29.1 pg (27-33); Mean Corpuscular Hgb Conc 33.1 g/dL (31-36); Mean Platelet Volume 8.2 fL (7.5-11.2); Platelet Count 207 10^3/uL (150-450); Red Blood Count 2.71 10^6/uL (4.06-5.63); Red Cell Distribution Width 16.3 % (12-17); White Blood Count 3.8 10^3/uL (3.6-10.2)
[2024-04-04 06:18] LABS: Albumin 2.5 g/dL (3.2-5.2); Albumin/Globulin Ratio 1.1 (1-3); Calcium 7.5 mg/dL (8.6-10.3); Creatinine, Serum 1.26 mg/dL (0.67-1.17); Globulin 2.2 g/dL (2-4); Magnesium 1.6 mg/dL (1.9-2.7); Phosphorus 2.8 mg/dL (2.5-5.0); Potassium 3.9 mmol/L (3.5-5.0); Total Bilirubin 0.5 mg/dL (0.2-1.0); Total Protein 4.7 g/dL (6.4-8.9); eGFR CKD-EPI 57.3 (>60)
[2024-04-05 07:13] LABS: Calcium 7.7 mg/dL (8.6-10.3); Creatinine, Serum 1.27 mg/dL (0.67-1.17); Potassium 3.5 mmol/L (3.5-5.0); eGFR CKD-EPI 56.8 (>60)
[2024-04-05 09:26] LABS: Hemoglobin 7.9 g/dL (13.2-16.3); Mean Corpuscular Hemoglobin 28.9 pg (27-33); Mean Corpuscular Hgb Conc 32.9 g/dL (31-36); Mean Corpuscular Volume 87.6 fL (80-97); Mean Platelet Volume 8.2 fL (7.5-11.2); Platelet Count 213 10^3/uL (150-450); Red Blood Count 2.74 10^6/uL (4.06-5.63); Red Cell Distribution Width 16.2 % (12-17)
[2024-04-05 12:37] LABS: ABS Lymphocytes 1.4 10^3/uL (1.0-4.8); ABS Monocytes 0.4 10^3/uL (0.0-1.1); ABS Neutrophils 7.2 10^3/uL (1.5-7.6); Eosinophil % 0.3 %
[2024-04-05 12:38] LABS: RBC Morphology Normal (Normal)
[2024-04-05 14:05] VITALS: BP 117/67
== END 2024-04-05 14:20 | disposition home or self-care (01) ==
LOC: EDHOLD 08:41 → ED 08:41 → SUATTDRO 11:18 → MEDTELE 11:54
PROVIDERS: ADMIT Internal Medicine; ATTEND Hospitalist

== ENCOUNTER 2024-05-21 17:23 | Inpatient (IN) ==
[2024-05-21 19:07] LABS: ABS Lymphocytes 0.7 10^3/uL (1.0-4.8); ABS Monocytes 0.6 10^3/uL (0.0-1.1); ABS Neutrophils 6.6 10^3/uL (1.5-7.6); ABS Nucleated RBC 0.01 10^3/ul; Eosinophil % 0.5 %; Hematocrit 27.9 % (38-53); Hemoglobin 9.2 g/dL (13.2-16.3); Lymphocyte % 9.2 %; Mean Corpuscular Hemoglobin 29.7 pg (27-33); Mean Corpuscular Hgb Conc 32.9 g/dL (31-36); Mean Corpuscular Volume 90.3 fL (80-97); Mean Platelet Volume 7.7 fL (7.5-11.2); Nucleated Red Blood Cells % 0.1 %/100WBC (0.0-0.8); Platelet Count 210 10^3/uL (150-450); Red Blood Count 3.09 10^6/uL (4.06-5.63); Red Cell Distribution Width 17.7 % (12-17)
[2024-05-21 19:21] LABS: Activated Partial Thrombo Time 28.6 seconds (26.0-38.0); INR 1.04 (0.83-1.13)
[2024-05-21 19:23] LABS: Urine Appearance Clear; Urine Bilirubin Negative (Negative); Urine Blood Negative (Negative); Urine Color Light-Yellow; Urine Glucose Negative (Negative); Urine Ketones Negative (Negative); Urine Nitrite Negative (Negative); Urine Protein Trace (Negative); Urine Specific Gravity 1.018 (1.002-1.030); Urine Urobilinogen Negative (Negative)
[2024-05-21] MEDS: Lactated Ringers 1000 ml BAG 1,000 ML IV ONE (19:27)
[2024-05-21 19:56] LABS: Albumin 3.2 g/dL (3.2-5.2); C Reactive Protein 41.44 mg/L (<8.01); Calcium 8.3 mg/dL (8.6-10.3); Creatinine, Serum 1.36 mg/dL (0.67-1.17); Globulin 3.1 g/dL (2-4); Potassium 4.5 mmol/L (3.5-5.0); Total Bilirubin 0.5 mg/dL (0.2-1.0); Total Protein 6.3 g/dL (6.4-8.9); eGFR CKD-EPI 52.3 (>60)
[2024-05-21] MEDS ORDERED: cefTRIAXone 1 gm/50 mL D5W 1 GM/50 ML BAG IV ONE (20:17)
[2024-05-21 20:34] LABS: High Sensitivity Troponin 1 Hr 14 pg/mL (<20)
[2024-05-21] MEDS: cefTRIAXone 1 gm/50 mL D5W 1 GM/50 ML BAG IV SCH (21:33)
[2024-05-21] MEDS: Enoxaparin 30 MG/0.3 ML SYR SUBCUT SCH (21:45)
[2024-05-21] MEDS ORDERED: PANCRELIPASE 6000 UNIT PO SCH ×2 (22:00)
[2024-05-21] MEDS ORDERED: Ondansetron 4 mg VIAL 2 MG/ML 2 ml VIAL IV PRN (22:12)
[2024-05-21] MEDS: Ondansetron 4 mg VIAL 2 MG/ML 2 ml VIAL IV ONE (22:26)
[2024-05-21] MEDS: Azithromycin 500 mg/250 ml NS 500 MG/250 ML BAG IVPB ONE (22:26)
[2024-05-21] MEDS: NS 0.9% 500 ml BAG 500 ML IV ONE (23:40)
[2024-05-22] MEDS: PANCRELIPASE 6000 UNIT PO SCH (00:02)
[2024-05-22] MEDS: NS 0.9% 1000 ml BAG 1,000 ML IV SCH (00:41)
[2024-05-22 06:32] LABS: ABS Eosinophils 0.1 10^3/uL (0.0-0.5); ABS Lymphocytes 1.6 10^3/uL (1.0-4.8); ABS Monocytes 1.2 10^3/uL (0.0-1.1); ABS Neutrophils 7.7 10^3/uL (1.5-7.6); Hematocrit 22.3 % (38-53); Hemoglobin 7.5 g/dL (13.2-16.3); Lymphocyte % 15.3 %; Mean Corpuscular Hemoglobin 30.7 pg (27-33); Mean Corpuscular Hgb Conc 33.8 g/dL (31-36); Mean Corpuscular Volume 90.9 fL (80-97); Mean Platelet Volume 7.7 fL (7.5-11.2); Platelet Count 162 10^3/uL (150-450); Red Blood Count 2.45 10^6/uL (4.06-5.63); Red Cell Distribution Width 17.8 % (12-17); White Blood Count 10.7 10^3/uL (3.6-10.2)
[2024-05-22] MEDS: Mometasone/Formoter 200/5 MDI INH SCH (07:21)
[2024-05-22 07:30] LABS: Calcium 7.6 mg/dL (8.6-10.3); Magnesium 1.5 mg/dL (1.9-2.7); Potassium 4.2 mmol/L (3.5-5.0)
[2024-05-22 08:08] LABS: Creatinine, Serum 1.36 mg/dL (0.67-1.17); eGFR CKD-EPI 52.3 (>60)
[2024-05-22] MEDS: Magnesium Sulfate 2 gm BAG 2 GM/50 ML BAG IVPB ONE (08:24)
[2024-05-22] MEDS: Magnesium Sulf 4 GM/100 ML IV 4,000 MG/100 ML BAG IVPB ONE (09:17)
[2024-05-22] MEDS: Cefepime 2 GM in Dextrose 2 GM/50 ML BAG IV SCH (09:44)
[2024-05-22 09:48] LABS: Hematocrit 24.7 % (38-53); Hemoglobin 8.2 g/dL (13.2-16.3); Mean Corpuscular Hemoglobin 30.4 pg (27-33); Mean Corpuscular Hgb Conc 33.2 g/dL (31-36); Mean Corpuscular Volume 91.5 fL (80-97); Mean Platelet Volume 7.6 fL (7.5-11.2); Platelet Count 176 10^3/uL (150-450); White Blood Count 10.6 10^3/uL (3.6-10.2)
[2024-05-22 17:04] VITALS: BP 127/80
== END 2024-05-22 17:18 | disposition home or self-care (01) | DRG 871 ==
LOC: ED 17:23 → SUATTDRO 21:09 → EDHOLD 21:09 → MEDTELE 23:48
PROVIDERS: ADMIT Hospitalist; ATTEND Internal Medicine

== ENCOUNTER 2024-08-19 07:42 | Observation (INO) ==
[2024-08-19 08:29] LABS: Hematocrit 30.4 % (38-53); Hemoglobin 10.3 g/dL (13.2-16.3); Mean Corpuscular Hemoglobin 29.6 pg (27-33); Mean Corpuscular Hgb Conc 33.8 g/dL (31-36); Mean Corpuscular Volume 87.8 fL (80-97); Mean Platelet Volume 7.9 fL (7.5-11.2); Platelet Count 188 10^3/uL (150-450); Red Blood Count 3.47 10^6/uL (4.06-5.63); Red Cell Distribution Width 17.1 % (12-17)
[2024-08-19 08:36] LABS: INR 1.05 (0.85-1.14)
[2024-08-19] MEDS: Piperacillin/Tazobac 3.375 BAG 3.375 GM/100 ML BAG IV ONE (08:37)
[2024-08-19] MEDS: Lactated Ringers SEPSIS* BAG 2,040 ML IV ONE (08:41)
[2024-08-19 08:50] LABS: Albumin 3.2 g/dL (3.2-5.2); Albumin/Globulin Ratio 0.9 (1-3); C Reactive Protein 73.71 mg/L (<8.01); Calcium 8.5 mg/dL (8.6-10.3); Creatinine, Serum 1.34 mg/dL (0.67-1.17); Globulin 3.4 g/dL (2-4); Potassium 4.8 mmol/L (3.5-5.0); Total Bilirubin 0.7 mg/dL (0.2-1.0); Total Protein 6.6 g/dL (6.4-8.9); eGFR CKD-EPI 53.2 (>60)
[2024-08-19 09:20] LABS: Urine Appearance Clear; Urine Bilirubin Negative (Negative); Urine Blood Negative (Negative); Urine Color Light-Yellow; Urine Glucose Negative (Negative); Urine Ketones Negative (Negative); Urine Nitrite Negative (Negative); Urine Protein Negative (Negative); Urine Specific Gravity 1.018 (1.002-1.030); Urine Urobilinogen Negative (Negative); Urine pH 5.5 (5.0-8.0)
[2024-08-19 09:50] LABS: ABS Lymphocytes 0.3 10^3/uL (1.0-4.8); ABS Monocytes 0.1 10^3/uL (0.0-1.1); ABS Neutrophils 3.5 10^3/uL (1.5-7.6); ABS Nucleated RBC 0.01 10^3/ul; Eosinophil % 1.2 %; Lymphocyte % 6.9 %; Nucleated Red Blood Cells % 0.1 %/100WBC (0.0-0.8)
[2024-08-19] MEDS: NS 0.9% 1000 ml BAG 1,000 ML IV ONE (10:09)
[2024-08-19] MEDS: Iodixanol (CONTRAST) 320 MG/ML 100 ML SDV IV ONE (10:49)
[2024-08-19] MEDS ORDERED: Morphine ORAL CONCENTRATE 5 MG/0.25 ML ORAL.SYRIN PO PRN (13:32)
[2024-08-19] MEDS ORDERED: Ondansetron ODT 4 mg TAB 4 MG TAB PO PRN (13:32)
[2024-08-19] MEDS: Lactated Ringers 1000 ml BAG 1,000 ML IV SCH (13:56)
[2024-08-19] MEDS: ZOSYN 3.375 GM Q8H per EXTENDED INFUSION IV SCH (13:57)
[2024-08-19] MEDS ORDERED: Zosyn per Pharmacy NOTE FOLLOW UP SCH (14:00)
[2024-08-19] MEDS ORDERED: Pancrelipase 24,000 units (NF) PO SCH (14:00)
[2024-08-19] MEDS: PANCRELIPASE 24000 UNIT PO SCH (17:18)
[2024-08-20 05:26] LABS: Hematocrit 21.7 % (38-53); Hemoglobin 7.2 g/dL (13.2-16.3); Mean Corpuscular Hemoglobin 28.8 pg (27-33); Mean Corpuscular Volume 87.4 fL (80-97); Platelet Count 142 10^3/uL (150-450); Red Blood Count 2.49 10^6/uL (4.06-5.63); Red Cell Distribution Width 17.1 % (12-17); White Blood Count 5.2 10^3/uL (3.6-10.2)
[2024-08-20 05:51] LABS: Calcium 7.2 mg/dL (8.6-10.3); Creatinine, Serum 1.29 mg/dL (0.67-1.17); Magnesium 1.4 mg/dL (1.9-2.7); Potassium 3.9 mmol/L (3.5-5.0); eGFR CKD-EPI 55.7 (>60)
[2024-08-20 06:35] LABS: ABS Eosinophils 0.2 10^3/uL (0.0-0.5); ABS Lymphocytes 0.8 10^3/uL (1.0-4.8); ABS Monocytes 0.8 10^3/uL (0.0-1.1); ABS Neutrophils 3.4 10^3/uL (1.5-7.6); Anisocytosis 1+; Eosinophil % 3.4 %; Lymphocyte % 15.2 %; Nucleated Red Blood Cells % 0.1 %/100WBC (0.0-0.8)
[2024-08-20] MEDS: Mometasone/Formoter 200/5 MDI INH SCH (07:51)
[2024-08-20] MEDS: Magnesium Sulfate 2 gm BAG 2 GM/50 ML BAG IVPB ONE (07:58)
[2024-08-20] MEDS: Magnesium Sulfate IV 1GM/100ML 1 GM/100 ML BAG IV ONE (09:33)
[2024-08-20 15:51] VITALS: BP 144/79
[2024-08-22 23:14] LABS: Anaplasma phagocytophilum Negative (Negative); B. miyamotoi PCR, B Negative (Negative); Babesia divergens/MO-1 Negative (Negative); Babesia ducani Negative (Negative); Ehrlichia chaffeensis Negative (Negative); Ehrlichia ewingii/canis Negative (Negative); Ehrlichia muris eauclairensis Negative (Negative)
== END 2024-08-20 17:52 | disposition home or self-care (01) ==
LOC: EDHOLD 07:42 → ED 07:42 → MED 12:13
PROVIDERS: ADMIT Internal Medicine; ATTEND Internal Medicine

== ENCOUNTER 2024-10-14 11:10 | Observation (INO) ==
[2024-10-14 12:35] LABS: ABS Eosinophils 0.3 10^3/uL (0.0-0.5); ABS Lymphocytes 0.9 10^3/uL (1.0-4.8); ABS Neutrophils 2.9 10^3/uL (1.5-7.6); Eosinophil % 5.2 %; Hematocrit 32.7 % (38-53); Hemoglobin 10.9 g/dL (13.2-16.3); Lymphocyte % 18.3 %; Mean Corpuscular Hemoglobin 29.8 pg (27-33); Mean Corpuscular Hgb Conc 33.3 g/dL (31-36); Mean Corpuscular Volume 89.6 fL (80-97); Mean Platelet Volume 7.8 fL (7.5-11.2); Platelet Count 210 10^3/uL (150-450); Red Blood Count 3.65 10^6/uL (4.06-5.63); Red Cell Distribution Width 17.6 % (12-17); White Blood Count 5.1 10^3/uL (3.6-10.2)
[2024-10-14 12:39] LABS: INR 1.02 (0.85-1.14)
[2024-10-14 13:11] LABS: Albumin 3.2 g/dL (3.2-5.2); Albumin/Globulin Ratio 1.1 (1-3); Calcium 8.4 mg/dL (8.6-10.3); Creatinine, Serum 1.21 mg/dL (0.67-1.17); Potassium 4.4 mmol/L (3.5-5.0); Total Bilirubin 0.3 mg/dL (0.2-1.0); Total Protein 6.2 g/dL (6.4-8.9); eGFR CKD-EPI 60.2 (>60)
[2024-10-14 14:19] LABS: High Sensitivity Troponin 1 Hr 7 pg/mL (<20)
[2024-10-14] MEDS: Albuterol/Ipratropium NEB.SOL (2.5/0.5 MG) 3 ML NEB.SOLN INH ONE (15:47)
[2024-10-14] MEDS: Azithromycin 500 mg/250 ml NS 500 MG/250 ML BAG IVPB ONE (16:59)
[2024-10-14] MEDS: cefTRIAXone 1 gm/50 mL D5W 1 GM/50 ML BAG IV ONE (16:59)
[2024-10-14] MEDS: Piperacillin/Tazobac 3.375 BAG 3.375 GM/100 ML BAG IV ONE ×2 (16:59→18:55)
[2024-10-14] MEDS ORDERED: Morphine ORAL CONCENTRATE 5 MG/0.25 ML ORAL.SYRIN PO PRN (17:52)
[2024-10-14] MEDS ORDERED: [UNRECOGNIZED DRUG - REMARK] PO PRN (17:52)
[2024-10-14] MEDS ORDERED: Ondansetron ODT 4 mg TAB 4 MG TAB PO PRN (17:52)
[2024-10-14] MEDS: NS 0.9% 1000 ml BAG 1,000 ML IV SCH (17:57)
[2024-10-14] MEDS: Enoxaparin 40 MG/0.4 ML SYR SUBCUT SCH (18:03)
[2024-10-14] MEDS: cefTRIAXone 1 gm/50 mL D5W 1 GM/50 ML BAG IV SCH (18:52)
[2024-10-14] MEDS ORDERED: Zosyn per Pharmacy NOTE FOLLOW UP SCH (19:00)
[2024-10-14 19:54] LABS: C Reactive Protein 10.27 mg/L (<8.01); Magnesium 1.8 mg/dL (1.9-2.7)
[2024-10-14] MEDS: PANCRELIPASE 24000 UNIT PO SCH (21:10)
[2024-10-14] MEDS: Potassium Chlor 20 meq TAB.ER PO SCH (22:25)
[2024-10-14] MEDS: PTO:Multivitamins/Mins AREDS2 (NF) CAP PO SCH (22:25)
[2024-10-14] MEDS: ZOSYN 3.375 GM Q8H per EXTENDED INFUSION IV SCH (23:15)
[2024-10-15 04:53] LABS: Hematocrit 29.6 % (38-53); Hemoglobin 9.8 g/dL (13.2-16.3); Mean Corpuscular Hemoglobin 29.7 pg (27-33); Mean Corpuscular Hgb Conc 33.1 g/dL (31-36); Mean Corpuscular Volume 89.7 fL (80-97); Mean Platelet Volume 7.9 fL (7.5-11.2); Platelet Count 184 10^3/uL (150-450); Red Cell Distribution Width 17.6 % (12-17); White Blood Count 4.9 10^3/uL (3.6-10.2)
[2024-10-15 05:26] LABS: Creatinine, Serum 1.34 mg/dL (0.67-1.17); Magnesium 1.7 mg/dL (1.9-2.7); Potassium 4.4 mmol/L (3.5-5.0); eGFR CKD-EPI 53.2 (>60)
[2024-10-15 07:18] LABS: ABS Eosinophils 0.2 10^3/uL (0.0-0.5); ABS Lymphocytes 1.1 10^3/uL (1.0-4.8); ABS Monocytes 1.1 10^3/uL (0.0-1.1); ABS Neutrophils 2.5 10^3/uL (1.5-7.6); Eosinophil % 4.8 %; Lymphocyte % 22.2 %; Nucleated Red Blood Cells % 0.1 %/100WBC (0.0-0.8)
[2024-10-15] MEDS: Magnesium Sulfate 2 gm BAG 2 GM/50 ML BAG IVPB ONE (08:30)
[2024-10-15] MEDS: Magnesium Sulfate IV 1GM/100ML 1 GM/100 ML BAG IV ONE (09:47)
[2024-10-15] MEDS: Mometasone/Formoter 200/5 MDI INH SCH (10:25)
[2024-10-15] MEDS: ZOSYN 3.375 GM Q8H per EXTENDED INFUSION IV SCH (10:29)
[2024-10-15] MEDS: PTO:Pancrelipase 24,000 units (NF) PO SCH (12:26)
[2024-10-15] MEDS: Azithromycin 500 mg/250 ml NS 500 MG/250 ML BAG IVPB SCH (17:03)
[2024-10-16 05:56] LABS: Hemoglobin 9.5 g/dL (13.2-16.3); Mean Corpuscular Hemoglobin 29.5 pg (27-33); Mean Corpuscular Hgb Conc 32.9 g/dL (31-36); Mean Corpuscular Volume 89.7 fL (80-97); Mean Platelet Volume 7.9 fL (7.5-11.2); Platelet Count 171 10^3/uL (150-450); Red Blood Count 3.23 10^6/uL (4.06-5.63); Red Cell Distribution Width 17.5 % (12-17); White Blood Count 5.3 10^3/uL (3.6-10.2)
[2024-10-16 06:38] LABS: Creatinine, Serum 1.37 mg/dL (0.67-1.17); Magnesium 1.9 mg/dL (1.9-2.7); Potassium 4.3 mmol/L (3.5-5.0); eGFR CKD-EPI 51.8 (>60)
[2024-10-16 09:20] LABS: ABS Eosinophils 0.3 10^3/uL (0.0-0.5); ABS Lymphocytes 1.2 10^3/uL (1.0-4.8); ABS Monocytes 1.1 10^3/uL (0.0-1.1); ABS Neutrophils 2.7 10^3/uL (1.5-7.6); Eosinophil % 5.4 %; Lymphocyte % 22.1 %; Nucleated Red Blood Cells % 0.1 %/100WBC (0.0-0.8)
[2024-10-16 09:46] VITALS: BP 131/66
== END 2024-10-16 12:40 | disposition home or self-care (01) ==
LOC: EDHOLD 11:10 → ED 11:10 → MEDTELE 10-15 02:57
PROVIDERS: ADMIT Student in an Organized Health Care Education/Training Program; ATTEND Student in an Organized Health Care Education/Training Program

== ENCOUNTER 2024-11-03 18:54 | Inpatient (IN) ==
[2024-11-03 21:02] LABS: ABS Eosinophils 0.2 10^3/uL (0.0-0.5); ABS Lymphocytes 0.8 10^3/uL (1.0-4.8); ABS Monocytes 1.2 10^3/uL (0.0-1.1); ABS Neutrophils 6.9 10^3/uL (1.5-7.6); Eosinophil % 2.1 %; Hematocrit 35.8 % (38-53); Hemoglobin 11.8 g/dL (13.2-16.3); Mean Corpuscular Hemoglobin 29.9 pg (27-33); Mean Corpuscular Hgb Conc 32.9 g/dL (31-36); Mean Corpuscular Volume 90.6 fL (80-97); Mean Platelet Volume 8.1 fL (7.5-11.2); Platelet Count 240 10^3/uL (150-450); Red Blood Count 3.95 10^6/uL (4.06-5.63); Red Cell Distribution Width 17.1 % (12-17); White Blood Count 9.1 10^3/uL (3.6-10.2)
[2024-11-03] MEDS: Morphine 4 MG/ML VIAL (1 ml) IV ONE (21:23)
[2024-11-03 21:25] LABS: Albumin 3.6 g/dL (3.2-5.2); C Reactive Protein 7.15 mg/L (<8.01); Creatinine, Serum 1.33 mg/dL (0.67-1.17); Globulin 3.7 g/dL (2-4); Potassium 4.4 mmol/L (3.5-5.0); Total Bilirubin 0.3 mg/dL (0.2-1.0); Total Protein 7.3 g/dL (6.4-8.9); eGFR CKD-EPI 53.4 (>60)
[2024-11-03] MEDS: Ondansetron 4 mg VIAL 2 MG/ML 2 ml VIAL IV ONE (21:31)
[2024-11-03] MEDS: Prochlorperazine 5 mg/ml 2 ml VIAL (10 mg) IV ONE (22:04)
[2024-11-03] MEDS: HYDROmorphone 1 MG/1 ML SYRINGE IV ONE (22:04)
[2024-11-03] MEDS: Iodixanol 320 (CONTRAST) 100 ML SDV IV ONE (22:50)
[2024-11-04 01:17] LABS: Urine Appearance Clear; Urine Bilirubin Negative (Negative); Urine Blood Negative (Negative); Urine Color Yellow; Urine Glucose Negative (Negative); Urine Ketones Trace (Negative); Urine Nitrite Negative (Negative); Urine Protein 2+ (>=100 mg/dL) (Negative); Urine Specific Gravity >1.050 (1.002-1.030); Urine Urobilinogen Negative (Negative)
[2024-11-04 01:25] LABS: Urine Bacteria Absent /HPF (Absent); Urine Red Blood Cell Absent /HPF (0-Trace); Urine Squamous Epithelial Cell Present /HPF (Absent); Urine White Blood Cell Absent /HPF (0-Trace)
[2024-11-04] MEDS: NS 0.9% 1000 ml BAG 1,000 ML IV ONE (02:41)
[2024-11-04] MEDS: HYDROmorphone 1 MG/1 ML SYRINGE IV ONE (02:42)
[2024-11-04] MEDS: Metoclopramide 5 MG/ML VIAL (10 mg) IV SLOW PU ONE (04:25)
[2024-11-04] MEDS: Lactated Ringers 1000 ml BAG 1,000 ML IV ONE ×3 (06:34→16:58)
[2024-11-04 06:53] LABS: ABS Lymphocytes 0.4 10^3/uL (1.0-4.8); ABS Monocytes 1.4 10^3/uL (0.0-1.1); ABS Neutrophils 14.4 10^3/uL (1.5-7.6); Eosinophil % 0.1 %; Hematocrit 35.5 % (38-53); Hemoglobin 11.8 g/dL (13.2-16.3); Lymphocyte % 2.4 %; Mean Corpuscular Hemoglobin 30.1 pg (27-33); Mean Corpuscular Hgb Conc 33.2 g/dL (31-36); Mean Corpuscular Volume 90.7 fL (80-97); Platelet Count 224 10^3/uL (150-450); Red Blood Count 3.91 10^6/uL (4.06-5.63); White Blood Count 16.3 10^3/uL (3.6-10.2)
[2024-11-04 07:41] LABS: Albumin 3.2 g/dL (3.2-5.2); Calcium 8.3 mg/dL (8.6-10.3); Creatinine, Serum 1.46 mg/dL (0.67-1.17); Globulin 3.3 g/dL (2-4); Potassium 4.6 mmol/L (3.5-5.0); Total Bilirubin 0.4 mg/dL (0.2-1.0); Total Protein 6.5 g/dL (6.4-8.9); eGFR CKD-EPI 47.7 (>60)
[2024-11-04 10:11] LABS: Immature Retic Fraction 0.28
[2024-11-04 10:23] LABS: Corrected Retic Count 0.6 % (0.5-2.2); Hematocrit for Retic CNT 35.5 % (38-53); RBC Retic Count 3.91 10^6/ul (4.06-5.63)
[2024-11-04] MEDS ORDERED: Morphine ORAL CONCENTRATE 5 MG/0.25 ML ORAL.SYRIN PO PRN (11:02)
[2024-11-04] MEDS: Morphine 2 MG/ML SYRINGE IV PRN (12:13)
[2024-11-04] MEDS: HYDROmorphone 1 MG/1 ML SYRINGE IV PRN (16:27)
[2024-11-04] MEDS: Enoxaparin 40 MG/0.4 ML SYR SUBCUT SCH (20:06)
[2024-11-04] MEDS: Lactated Ringers 1000 ml BAG 500 ML IV ONE (22:10)
[2024-11-04] MEDS ORDERED: Acetaminophen IV 1 GM/100ML 1,000 MG/100 ML BAG IV PRN (22:15)
[2024-11-04] MEDS: Lactated Ringers 1000 ml BAG 1,000 ML IV SCH (22:45)
[2024-11-05 06:06] LABS: Hematocrit 31.5 % (38-53); Hemoglobin 10.4 g/dL (13.2-16.3); Mean Corpuscular Hemoglobin 30.2 pg (27-33); Mean Corpuscular Volume 91.4 fL (80-97); Mean Platelet Volume 8.3 fL (7.5-11.2); Platelet Count 196 10^3/uL (150-450); Red Blood Count 3.45 10^6/uL (4.06-5.63); Red Cell Distribution Width 17.5 % (12-17)
[2024-11-05 06:24] LABS: Calcium 7.9 mg/dL (8.6-10.3); Creatinine, Serum 1.89 mg/dL (0.67-1.17); Magnesium 1.5 mg/dL (1.9-2.7); Phosphorus 4.6 mg/dL (2.5-5.0)
[2024-11-05 07:19] LABS: ABS Lymphocytes 0.7 10^3/uL (1.0-4.8); ABS Monocytes 1.6 10^3/uL (0.0-1.1); ABS Neutrophils 10.6 10^3/uL (1.5-7.6); Eosinophil % 0.2 %; Lymphocyte % 5.6 %
[2024-11-05] MEDS: Magnesium Sulf 4 GM/100 ML IV 4,000 MG/100 ML BAG IVPB ONE (08:17)
[2024-11-05] MEDS: NF: Pancrelipase 24,000 units (NF) PO SCH ×2 (17:15→20:44)
[2024-11-05] MEDS: Mometasone/Formoter 200/5 MDI INH SCH (19:11)
[2024-11-05] MEDS: Potassium Chlor 20 meq TAB.ER PO SCH (20:41)
[2024-11-05] MEDS: Acetaminophen IV 1 GM/100ML 1,000 MG/100 ML BAG IV PRN (23:18)
[2024-11-06] MEDS: HYDROmorphone 1 MG/1 ML SYRINGE IV SLOW PU ONE (02:18)
[2024-11-06 06:15] LABS: Hematocrit 25.9 % (38-53); Hemoglobin 8.9 g/dL (13.2-16.3); Mean Corpuscular Hemoglobin 30.9 pg (27-33); Mean Corpuscular Hgb Conc 34.3 g/dL (31-36); Mean Corpuscular Volume 89.9 fL (80-97); Mean Platelet Volume 8.5 fL (7.5-11.2); Platelet Count 169 10^3/uL (150-450); Red Blood Count 2.88 10^6/uL (4.06-5.63); Red Cell Distribution Width 16.8 % (12-17); White Blood Count 8.8 10^3/uL (3.6-10.2)
[2024-11-06 06:33] LABS: Albumin 2.4 g/dL (3.2-5.2); Calcium 7.4 mg/dL (8.6-10.3); Creatinine, Serum 1.47 mg/dL (0.67-1.17); Globulin 2.5 g/dL (2-4); Magnesium 2.3 mg/dL (1.9-2.7); Phosphorus 3.2 mg/dL (2.5-5.0); Potassium 4.2 mmol/L (3.5-5.0); Total Bilirubin 0.5 mg/dL (0.2-1.0); Total Protein 4.9 g/dL (6.4-8.9); eGFR CKD-EPI 47.3 (>60)
[2024-11-06 07:45] LABS: ABS Eosinophils 0.1 10^3/uL (0.0-0.5); ABS Lymphocytes 0.9 10^3/uL (1.0-4.8); ABS Monocytes 1.5 10^3/uL (0.0-1.1); ABS Neutrophils 6.3 10^3/uL (1.5-7.6); Eosinophil % 0.6 %; Lymphocyte % 10.5 %; RBC Morphology Normal (Normal)
[2024-11-06] MEDS ORDERED: NF: Pancrelipase 24,000 units (NF) PO PRN (10:30)
[2024-11-06] MEDS: NF: Pancrelipase 24,000 units (NF) PO SCH (11:58)
[2024-11-06 14:15] VITALS: BP 162/71
== END 2024-11-06 15:15 | disposition home or self-care (01) | DRG 389 ==
LOC: EDHOLD 18:54 → ED 18:54 → SUATTDRO 11-04 02:40 → EDHOLD 11-04 12:32 → MED 11-04 13:34
PROVIDERS: ADMIT Hospitalist; ATTEND Internal Medicine